=== PATIENT | male | born 1960 | race Caucasian/White ===

== ENCOUNTER 2023-03-06 07:26 | Emergency (ER) | payer MEDICAID, OTHER ==
[~2023-03-06] VITALS: Ht 172.7 cm; Wt 85.0 kg
[2023-03-06 08:37] LABS: Urine Bacteria NONE SEEN /hpf (None Seen); Urine Blood Negative /uL (Negative); Urine Clarity Clear (Clear); Urine Color Colorless (Yellow); Urine Protein, UAD Negative (Negative); Urine Specific Gravity 1.019 (1.001-1.035); Urine Urobilinogen Normal (Negative); Urine WBC 1 /hpf (0 - 3)
[2023-03-06 08:38] LABS: Basophils # (auto) 0 10 ^3/uL (0-0.2); Basophils % (auto) 0.4 % (0.0-2.0); Eosinophils # (auto) 0.1 10 ^3/uL (0-0.8); Eosinophils % (auto) 0.6 % (0.0-7.0); Hematocrit 43.1 % (41.0-53.0); Hemoglobin 14.2 g/dL (13.5-17.5); Lymphocytes # (auto) 1.1 10 ^3/uL (0.4-5.4); Lymphocytes % (auto) 10.5 % (10.0-50.0); Mean Corpuscular Hemoglobin 28.8 pg (28.0-32.0); Mean Corpuscular Volume 87.3 fL (80.0-100.0); Monocytes # (auto) 0.5 10 ^3/uL (0-1.3); Monocytes % (auto) 4.9 % (0.0-12.0); Neutrophils % (auto) 83.6 % (37.0-80.0); Red Blood Cells 4.94 10^6/uL (4.5-5.90); Red Cell Distribution Width 13.5 % (11.8-14.3); White Blood Cell 10.7 10^3/uL (4.4-10.8)
[2023-03-06 09:09] LABS: Alanine Aminotransferase 20 U/L (7-40); Albumin 4.6 g/dL (3.2-4.8); Alkaline Phosphatase 86 U/L (46-116); Anion Gap 7.5 (5-15); Aspartate Aminotransferase 22 U/L (13-40); BUN/Creatinine Ratio 13.9 (10.0-20.0); Blood Urea Nitrogen 14 mg/dL (9-23); Calcium 9.5 mg/dL (8.5-10.1); Carbon Dioxide 22.5 mmol/L (20-30); Chloride 108 mmol/L (98-107); Glucose 93 mg/dL (74-106); Sodium 138 mmol/L (136-145)
[2023-03-06 09:10] LABS: Bilirubin, Total 0.9 mg/dL (0.2-1.0); Total Protein 7.6 g/dL (5.7-8.2)
[2023-03-06] MEDS ORDERED: LIDOCAINE 2% JELLY 11ml (GLYDO) UR ONE (11:45)
[2023-03-06 12:23] VITALS: BP 142/87; PULSE 84; RESP 17; TEMP 98.8; O2SAT 97
== END 2023-03-06 12:24 | disposition home or self-care (01) ==
LOC: ER 07:26
DX: R33.9 Retention of urine, unspecified (principal); Z88.0 Allergy status to penicillin
CPT/HCPCS: 36415; 74176; 80053; 81001; 85025

== ENCOUNTER 2023-09-11 13:09 | Inpatient (IN) | payer MEDICAID ==
[~2023-09-11] VITALS: Ht 170.2 cm; Wt 82.2 kg
[~2023-09-11 13:09] MED LIST: CIPR-173 PO; TAMS-35 PO
[2023-09-11] MEDS: SODIUM CHLORIDE 0.9% 1,000 ML IVB ONE (14:02)
[2023-09-11] MEDS: ONDANSETRON HCL 4 MG/2 ML VIAL IV ONE ×2 (14:08→17:19)
[2023-09-11 14:25] LABS: Urine Bacteria NONE SEEN /hpf (None Seen); Urine Blood 3+ /uL (Negative); Urine Clarity Clear (Clear); Urine Color Yellow (Yellow); Urine Hyaline Cast FEW /lpf (0 - 2); Urine Mucus FEW (None Seen); Urine Protein, UAD 2+ (Negative); Urine Specific Gravity 1.021 (1.001-1.035); Urine Urobilinogen Normal (Negative); Urine WBC 25 /hpf (0 - 3)
[2023-09-11 14:26] LABS: Basophils # (auto) 0 10 ^3/uL (0-0.2); Basophils % (auto) 0.1 % (0.0-2.0); Eosinophils # (auto) 0.1 10 ^3/uL (0-0.8); Eosinophils % (auto) 0.8 % (0.0-7.0); Hematocrit 41.4 % (41.0-53.0); Hemoglobin 13.7 g/dL (13.5-17.5); Lymphocytes # (auto) 0.8 10 ^3/uL (0.4-5.4); Lymphocytes % (auto) 8.7 % (10.0-50.0); Mean Corpuscular Hemoglobin 28.8 pg (28.0-32.0); Mean Corpuscular Hgb Conc. 33.2 g/dL (32.0-36.0); Mean Corpuscular Volume 86.9 fL (80.0-100.0); Monocytes # (auto) 0.4 10 ^3/uL (0-1.3); Monocytes % (auto) 4.1 % (0.0-12.0); Neutrophils # (auto) 7.7 10 ^3/uL (1.6-8.6); Neutrophils % (auto) 86.3 % (37.0-80.0); Red Blood Cells 4.77 10^6/uL (4.5-5.90); Red Cell Distribution Width 13.4 % (11.8-14.3); White Blood Cell 8.9 10^3/uL (4.4-10.8)
[2023-09-11 14:41] LABS: Alanine Aminotransferase 16 U/L (7-40); Albumin 4.3 g/dL (3.2-4.8); Alkaline Phosphatase 83 U/L (46-116); Anion Gap 7 (5-15); Aspartate Aminotransferase 14 U/L (13-40); BUN/Creatinine Ratio 7.6 (10.0-20.0); Bilirubin, Total 0.3 mg/dL (0.2-1.0); Blood Urea Nitrogen 7 mg/dL (9-23); Calcium 9.2 mg/dL (8.7-10.4); Carbon Dioxide 27 mmol/L (20-30); Chloride 103 mmol/L (98-107); Glucose 128 mg/dL (74-106); Lipase 21 U/L (12-53); Magnesium 1.6 mg/dL (1.6-2.6); Potassium 4.7 mmol/L (3.5-5.1); Sodium 137 mmol/L (136-145)
[2023-09-11] MEDS: IOHEXOL 300 MG/ML 100ML BOTTLE IJ ONE (14:59)
[2023-09-11] MEDS: DONNATAL 5ml ORAL Elix (BELLADONNA ALK-PHENOBARB) PO ONE (15:31)
[2023-09-11] MEDS: LIDOCAINE VISCOUS 2% 15ML UD PO ONE (15:31)
[2023-09-11] MEDS: MAALOX PLUS or MAALOX 30 ML PO ONE (15:31)
[2023-09-11 17:08] VITALS: PULSE 55; RESP 13; O2SAT 98
[2023-09-11] MEDS: CEFEPIME 1GM/ 50ML 50 ML IV ONE (17:19)
[2023-09-11] MEDS: MORPHINE SULFATE 4 MG/ML SYR/VIAL IV ONE (17:19)
[2023-09-11] MEDS ORDERED: PANTOPRAZOLE 40 MG/10 ML VIAL INJ IV ONE (18:45)
[2023-09-11] MEDS ORDERED: metroNIDAZOLE 500MG/100ML 100 ML IV ONE (18:45)
[2023-09-11] MEDS ORDERED: levoFLOXacin 500MG 100 ML IV ONE (18:45)
[2023-09-11] MEDS ORDERED: DOCUSATE SOD 100 MG CAP PO PRN (18:45)
[2023-09-11 19:30] VITALS: PULSE 64; RESP 12; O2SAT 98
[2023-09-11] MEDS: CIPROFLOXACIN 400MG/200ML 200 ML IV ONE (20:25)
[2023-09-11] MEDS: SODIUM CHLORIDE 0.9% 1,000 ML IV SCH (20:25)
[2023-09-11] MEDS: PANTOPRAZOLE 40 MG/10 ML VIAL INJ IV ONE (20:25)
[2023-09-11] MEDS: hydrALAZINE HCL 20 MG/ML VL IV PRN (22:13)
[2023-09-11] MEDS: metroNIDAZOLE 500MG/100ML 100 ML IV SCH (23:58)
[2023-09-12] VITALS (7 sets, daily range): BP systolic 121–147; BP diastolic 75–84; PULSE 55–69; RESP 16–19; TEMP 97.5–98.3; O2SAT 97–99
[2023-09-12] MEDS: MORPHINE SULFATE INJ 2 MG/ml SYRG IV PRN (00:12)
[2023-09-12 05:34] LABS: Basophils # (auto) 0 10 ^3/uL (0-0.2); Basophils % (auto) 0.2 % (0.0-2.0); Eosinophils # (auto) 0 10 ^3/uL (0-0.8); Eosinophils % (auto) 0.6 % (0.0-7.0); Hemoglobin 14.2 g/dL (13.5-17.5); Lymphocytes # (auto) 1.2 10 ^3/uL (0.4-5.4); Mean Corpuscular Hemoglobin 28.7 pg (28.0-32.0); Mean Corpuscular Volume 86.9 fL (80.0-100.0); Monocytes # (auto) 0.5 10 ^3/uL (0-1.3); Monocytes % (auto) 6.7 % (0.0-12.0); Neutrophils # (auto) 6.3 10 ^3/uL (1.6-8.6); Neutrophils % (auto) 77.5 % (37.0-80.0); Red Blood Cells 4.95 10^6/uL (4.5-5.90); Red Cell Distribution Width 13.3 % (11.8-14.3); White Blood Cell 8.1 10^3/uL (4.4-10.8)
[2023-09-12 05:58] LABS: Alanine Aminotransferase 342 U/L (7-40); Albumin 4.3 g/dL (3.2-4.8); Alkaline Phosphatase 220 U/L (46-116); Anion Gap 5 (5-15); Aspartate Aminotransferase 524 U/L (13-40); BUN/Creatinine Ratio 5.6 (10.0-20.0); Blood Urea Nitrogen 5 mg/dL (9-23); Calcium 9.1 mg/dL (8.5-10.1); Carbon Dioxide 29 mmol/L (20-30); Chloride 104 mmol/L (98-107); Glucose 102 mg/dL (74-106); Potassium 4.3 mmol/L (3.5-5.1); Sodium 138 mmol/L (136-145)
[2023-09-12 05:59] LABS: Bilirubin, Total 2.1 mg/dL (0.2-1.0); Total Protein 7.3 g/dL (5.7-8.2)
[2023-09-12] MEDS ORDERED: levoFLOXacin 500MG 100 ML IV SCH (10:00)
[2023-09-12] MEDS ORDERED: PANTOPRAZOLE 40 MG/10 ML VIAL INJ IV SCH (10:00)
[2023-09-12] MEDS: PANTOPRAZOLE 40 MG/10 ML VIAL INJ IV SCH (11:24)
[2023-09-12] MEDS: CIPROFLOXACIN 400MG/200ML 200 ML IV SCH (11:24)
[2023-09-12] MEDS: TAMSULOSIN HYDROCHLORIDE 0.4 MG CAP PO SCH (17:03)
[2023-09-13 05:13] VITALS: BP 117/72; PULSE 65; RESP 18; TEMP 98.2; O2SAT 98
[2023-09-13 06:25] LABS: Alanine Aminotransferase 228 U/L (7-40); Albumin 3.4 g/dL (3.2-4.8); Alkaline Phosphatase 169 U/L (46-116); Anion Gap 3 (5-15); Aspartate Aminotransferase 180 U/L (13-40); BUN/Creatinine Ratio 5.2 (10.0-20.0); Blood Urea Nitrogen < 5 mg/dL (9-23); Calcium 8.8 mg/dL (8.7-10.4); Carbon Dioxide 28 mmol/L (20-30); Chloride 108 mmol/L (98-107); Glucose 94 mg/dL (74-106); Magnesium 1.8 mg/dL (1.6-2.6); Potassium 4.6 mmol/L (3.5-5.1); Sodium 139 mmol/L (136-145)
[2023-09-13 06:26] LABS: Bilirubin, Total 1.4 mg/dL (0.2-1.0); Total Protein 5.8 g/dL (5.7-8.2)
[2023-09-13 06:31] LABS: Basophils # (auto) 0 10 ^3/uL (0-0.2); Basophils % (auto) 0.4 % (0.0-2.0); Eosinophils # (auto) 0.2 10 ^3/uL (0-0.8); Eosinophils % (auto) 3.6 % (0.0-7.0); Hematocrit 36.4 % (41.0-53.0); Hemoglobin 12.1 g/dL (13.5-17.5); Lymphocytes # (auto) 1.3 10 ^3/uL (0.4-5.4); Lymphocytes % (auto) 21.4 % (10.0-50.0); Mean Corpuscular Hemoglobin 28.9 pg (28.0-32.0); Mean Corpuscular Hgb Conc. 33.4 g/dL (32.0-36.0); Mean Corpuscular Volume 86.5 fL (80.0-100.0); Monocytes # (auto) 0.5 10 ^3/uL (0-1.3); Monocytes % (auto) 8.3 % (0.0-12.0); Neutrophils # (auto) 3.9 10 ^3/uL (1.6-8.6); Neutrophils % (auto) 66.3 % (37.0-80.0); Nucleated Red Blood Cells % 0.1 %; Red Cell Distribution Width 13.6 % (11.8-14.3); White Blood Cell 5.9 10^3/uL (4.4-10.8)
[2023-09-13 07:31] VITALS: BP 114/70; PULSE 57; RESP 16; TEMP 97.6; O2SAT 98
[2023-09-13] MEDS ORDERED: HYDR-4902 PO (07:39)
[2023-09-13 07:55] VITALS: PULSE 57; RESP 16; O2SAT 98
[2023-09-13 11:47] VITALS: BP 134/85; PULSE 58; RESP 16; TEMP 98.2; O2SAT 96
[2023-09-13 16:22] VITALS: BP 122/86; PULSE 59; RESP 17; TEMP 98.3; O2SAT 99
[2023-09-13 21:56] VITALS: BP 125/74; PULSE 78; RESP 16; TEMP 98.1; O2SAT 98
[2023-09-14 05:00] VITALS: BP 115/77; PULSE 55; RESP 17; TEMP 98.1; O2SAT 95
[2023-09-14 05:36] LABS: Alanine Aminotransferase 170 U/L (7-40); Albumin 3.4 g/dL (3.2-4.8); Alkaline Phosphatase 162 U/L (46-116); Anion Gap 5 (5-15); Aspartate Aminotransferase 83 U/L (13-40); Bilirubin, Total 0.7 mg/dL (0.2-1.0); Calcium 8.8 mg/dL (8.7-10.4); Carbon Dioxide 27 mmol/L (20-30); Chloride 109 mmol/L (98-107); Glucose 77 mg/dL (74-106); Magnesium 1.9 mg/dL (1.6-2.6); Potassium 4.4 mmol/L (3.5-5.1); Sodium 141 mmol/L (136-145)
[2023-09-14 05:50] LABS: BUN/Creatinine Ratio 5.6 (10.0-20.0); Blood Urea Nitrogen < 5 mg/dL (9-23)
[2023-09-14 08:48] LABS: Hepatitis B Surface Antigen Negative (Negative)
[2023-09-14 09:10] LABS: Hepatitis C Antibody Negative (Negative)
[2023-09-14 12:30] VITALS: BP 153/91; PULSE 51; RESP 18; TEMP 98.1; O2SAT 99
[2023-09-14 17:00] VITALS: BP 149/79; PULSE 51; RESP 20; TEMP 97.6; O2SAT 99
[2023-09-14 22:00] VITALS: BP 133/83; PULSE 62; RESP 18; TEMP 98; O2SAT 96
[2023-09-15 05:00] VITALS: BP 115/72; PULSE 60; RESP 18; TEMP 97.2; O2SAT 96
[2023-09-15 08:30] VITALS: BP 132/83; PULSE 57; RESP 18; TEMP 97.8; O2SAT 96
[2023-09-15 12:29] VITALS: BP 124/85; PULSE 74; RESP 20; TEMP 98.1; O2SAT 97
[2023-09-15 16:30] VITALS: BP 149/81; PULSE 60; RESP 17; TEMP 98.1; O2SAT 99
[2023-09-15 22:00] VITALS: BP 114/69; PULSE 60; RESP 17; TEMP 98; O2SAT 93
[2023-09-16 05:00] VITALS: BP 131/76; PULSE 59; RESP 17; TEMP 98.3; O2SAT 96
[2023-09-16 06:47] LABS: Basophils # (auto) 0 10 ^3/uL (0-0.2); Basophils % (auto) 0.5 % (0.0-2.0); Eosinophils # (auto) 0.3 10 ^3/uL (0-0.8); Eosinophils % (auto) 4.6 % (0.0-7.0); Hematocrit 37.4 % (41.0-53.0); Hemoglobin 12.6 g/dL (13.5-17.5); Lymphocytes # (auto) 1.4 10 ^3/uL (0.4-5.4); Lymphocytes % (auto) 20.4 % (10.0-50.0); Mean Corpuscular Hemoglobin 28.9 pg (28.0-32.0); Mean Corpuscular Hgb Conc. 33.6 g/dL (32.0-36.0); Mean Corpuscular Volume 85.9 fL (80.0-100.0); Monocytes # (auto) 0.5 10 ^3/uL (0-1.3); Monocytes % (auto) 7.2 % (0.0-12.0); Neutrophils # (auto) 4.7 10 ^3/uL (1.6-8.6); Neutrophils % (auto) 67.3 % (37.0-80.0); Red Blood Cells 4.35 10^6/uL (4.5-5.90); Red Cell Distribution Width 13.4 % (11.8-14.3)
[2023-09-16 07:03] LABS: Alanine Aminotransferase 108 U/L (7-40); Albumin 3.6 g/dL (3.2-4.8); Alkaline Phosphatase 199 U/L (46-116); Anion Gap 4 (5-15); Aspartate Aminotransferase 40 U/L (13-40); BUN/Creatinine Ratio 9.5 (10.0-20.0); Blood Urea Nitrogen 9 mg/dL (9-23); Calcium 8.8 mg/dL (8.5-10.1); Carbon Dioxide 25 mmol/L (20-30); Chloride 109 mmol/L (98-107); Cholesterol 126 mg/dL (< 200); Glucose 101 mg/dL (74-106); HDL Cholesterol 29 mg/dL (40-59); LDL Cholesterol 84 mg/dL (< 100); Potassium 4.1 mmol/L (3.5-5.1); Sodium 138 mmol/L (136-145); Triglycerides 91 mg/dL (< 150)
[2023-09-16 07:04] LABS: Bilirubin, Total 0.5 mg/dL (0.2-1.0)
[2023-09-16 07:47] LABS: Lipase 38 U/L (12-53)
[2023-09-16 07:48] LABS: Magnesium 1.8 mg/dL (1.6-2.6)
[2023-09-16 09:00] VITALS: BP 117/76; PULSE 54; RESP 18; TEMP 98.1; O2SAT 95
[2023-09-16] MEDS ORDERED: SUCCINYLCHOLINE CHLORIDE 20 MG/ML 10ML VIAL IV ONE (11:04)
[2023-09-16] MEDS ORDERED: fentaNYL CITRATE 100 MCG/2 ML VL ONE (11:09)
[2023-09-16] MEDS ORDERED: PROPOFOL 10 MG/ML 20 ML IV ONE (11:09)
[2023-09-16 11:43] LABS: INR 1.1 (0.9-1.15); Partial Thromboplastin Time 29.8 SEC (24.5-34.5); Prothrombin Time 11.5 sec (9.3-11.8)
[2023-09-16] MEDS ORDERED: ROCURONIUM 10MG/ML 10ML VIAL IV ONE (12:06)
[2023-09-16] MEDS ORDERED: DexAMETHasone SOD PHOS 10MG/1ML VIAL INJ ONE (12:07)
[2023-09-16] MEDS ORDERED: ONDANSETRON HCL 4 MG/2 ML VIAL ONE (12:07)
[2023-09-16] MEDS ORDERED: ePHEDrine SULFATE 50 MG/ML AMP ONE (12:09)
[2023-09-16] MEDS ORDERED: PHENYLEPHRINE HCL 10 MG/ML VL ONE (12:14)
[2023-09-16] MEDS ORDERED: MEPERIDINE HCL (50 MG/ML) 1 ML VIAL ONE (12:23)
[2023-09-16] MEDS ORDERED: SUGAMMADEX 200mg/2ml Vial (100MG/ML) IV ONE (12:50)
[2023-09-16] MEDS: LIDOCAINE W/ EPINEPHRINE 1% 20ML VIAL ONE (12:55)
[2023-09-16] MEDS: BUPIVACAINE 0.5% P/F INJ 10 ML VIAL ONE (12:55)
[2023-09-16] MEDS ORDERED: MEPERIDINE HCL (25 MG/ML) 1ML VIAL ONE (12:57)
[2023-09-16 13:06] VITALS: PULSE 82; RESP 14; O2SAT 96
[2023-09-16] MEDS ORDERED: ONDANSETRON HCL 4 MG/2 ML VIAL IV PRN (13:15)
[2023-09-16] MEDS ORDERED: HYDROmorphone HCL 2 MG/ML VL/or syr IV PRN (13:15)
[2023-09-16] MEDS ORDERED: MEPERIDINE HCL (25 MG/ML) 1ML VIAL IV PRN (13:15)
[2023-09-16] MEDS: ONDANSETRON HCL 4 MG/2 ML VIAL IV PRN (15:09)
[2023-09-16 17:00] VITALS: BP 116/67; PULSE 75; RESP 17; TEMP 97; O2SAT 92
[2023-09-16 17:00] LABS: Basophils # (auto) 0 10 ^3/uL (0-0.2); Basophils % (auto) 0.3 % (0.0-2.0); Eosinophils # (auto) 0 10 ^3/uL (0-0.8); Eosinophils % (auto) 0.1 % (0.0-7.0); Hemoglobin 13.1 g/dL (13.5-17.5); Lymphocytes # (auto) 0.4 10 ^3/uL (0.4-5.4); Lymphocytes % (auto) 3.6 % (10.0-50.0); Mean Corpuscular Hemoglobin 28.3 pg (28.0-32.0); Mean Corpuscular Hgb Conc. 32.8 g/dL (32.0-36.0); Mean Corpuscular Volume 86.1 fL (80.0-100.0); Monocytes # (auto) 0.2 10 ^3/uL (0-1.3); Monocytes % (auto) 1.6 % (0.0-12.0); Neutrophils # (auto) 10.9 10 ^3/uL (1.6-8.6); Neutrophils % (auto) 94.4 % (37.0-80.0); Red Blood Cells 4.64 10^6/uL (4.5-5.90); Red Cell Distribution Width 13.5 % (11.8-14.3); White Blood Cell 11.5 10^3/uL (4.4-10.8)
[2023-09-16 22:00] VITALS: BP 113/69; PULSE 76; RESP 18; TEMP 97.8; O2SAT 93
[2023-09-17 05:00] VITALS: BP 95/53; PULSE 65; RESP 15; TEMP 97.3; O2SAT 93
[2023-09-17 05:19] LABS: Basophils # (auto) 0 10 ^3/uL (0-0.2); Basophils % (auto) 0.3 % (0.0-2.0); Eosinophils # (auto) 0 10 ^3/uL (0-0.8); Hematocrit 38.2 % (41.0-53.0); Hemoglobin 12.4 g/dL (13.5-17.5); Lymphocytes # (auto) 0.6 10 ^3/uL (0.4-5.4); Lymphocytes % (auto) 4.3 % (10.0-50.0); Mean Corpuscular Hemoglobin 28.2 pg (28.0-32.0); Mean Corpuscular Hgb Conc. 32.5 g/dL (32.0-36.0); Mean Corpuscular Volume 86.8 fL (80.0-100.0); Monocytes # (auto) 0.4 10 ^3/uL (0-1.3); Monocytes % (auto) 2.6 % (0.0-12.0); Neutrophils # (auto) 13.6 10 ^3/uL (1.6-8.6); Neutrophils % (auto) 92.8 % (37.0-80.0); Red Cell Distribution Width 13.6 % (11.8-14.3); White Blood Cell 14.7 10^3/uL (4.4-10.8)
[2023-09-17 05:32] LABS: Alanine Aminotransferase 100 U/L (7-40); Albumin 3.7 g/dL (3.2-4.8); Alkaline Phosphatase 168 U/L (46-116); Anion Gap 6 (5-15); Aspartate Aminotransferase 51 U/L (13-40); BUN/Creatinine Ratio 10.4 (10.0-20.0); Bilirubin, Total 0.6 mg/dL (0.2-1.0); Blood Urea Nitrogen 10 mg/dL (9-23); Calcium 8.9 mg/dL (8.7-10.4); Carbon Dioxide 25 mmol/L (20-30); Chloride 105 mmol/L (98-107); Glucose 137 mg/dL (74-106); INR 1.12 (0.9-1.15); Lipase 24 U/L (12-53); Magnesium 1.9 mg/dL (1.6-2.6); Potassium 4.4 mmol/L (3.5-5.1); Prothrombin Time 11.7 sec (9.3-11.8); Sodium 136 mmol/L (136-145); Total Protein 6.4 g/dL (5.7-8.2)
[2023-09-17 06:03] VITALS: BP 109/74; PULSE 75
[2023-09-17 08:00] VITALS: BP 119/62; PULSE 75; RESP 16; TEMP 98; O2SAT 92
[2023-09-17] MEDS ORDERED: METR-344 PO (11:38)
[2023-09-17] MEDS ORDERED: CIPR-173 PO (11:38)
[2023-09-17 12:00] VITALS: BP 124/78; PULSE 66; RESP 16; TEMP 97.7; O2SAT 97
[2023-09-17 12:01] VITALS: BP 154/85; TEMP 36.7
== END 2023-09-17 14:33 | disposition home or self-care (01) | DRG 263 ==
LOC: ER 13:09 → OVERFLOW 18:42 → WEST WING 22:09
PROVIDERS: ADMIT Nurse Practitioner Family; ATTEND Internal Medicine Geriatric Medicine
PROC: 0FT44ZZ Resection of Gallbladder, Percutaneous Endoscopic Approach (ICD-10-PCS; principal; 2023-09-16 11:58)
DX: K80.12 Calculus of gallbladder with acute and chronic cholecystitis without obstruction (principal); K76.89 Other specified diseases of liver; D49.4 Neoplasm of unspecified behavior of bladder; K44.9 Diaphragmatic hernia without obstruction or gangrene; N30.00 Acute cystitis without hematuria; K82.8 Other specified diseases of gallbladder; Z85.46 Personal history of malignant neoplasm of prostate; Z88.0 Allergy status to penicillin; Z80.52 Family history of malignant neoplasm of bladder; Z80.1 Family history of malignant neoplasm of trachea, bronchus and lung; Z85.51 Personal history of malignant neoplasm of bladder; N40.1 Benign prostatic hyperplasia with lower urinary tract symptoms
CPT/HCPCS: 36415; 71045; 74177; 74181; 76705; 78226; 80053; 80061; 81001; 83605; 83690; 83735; 84484; 85025; 85610; 85730; 86803; 86850; 86900; 86901; 87040; 87086; 87340; 93005; C9113; G0378; J0330; J1100; J2405; J2704; J3490

== ENCOUNTER 2023-09-28 10:56 | Emergency (ER) | payer MEDICAID ==
[~2023-09-28] VITALS: Ht 172.7 cm; Wt 77.0 kg
[~2023-09-28 10:56] MED LIST changes: +HYDR-4902 PO; +METR-344 PO
[2023-09-28 10:58] VITALS: BP 117/80; PULSE 76; RESP 16; TEMP 97.8; O2SAT 98
== END 2023-09-28 13:05 | disposition home or self-care (01) ==
LOC: ER 10:56
DX: T81.89XD Other complications of procedures, not elsewhere classified, subsequent encounter (principal); Z48.01 Encounter for change or removal of surgical wound dressing; Z85.9 Personal history of malignant neoplasm, unspecified; Z88.0 Allergy status to penicillin; Z79.899 Other long term (current) drug therapy; Y92.89 Other specified places as the place of occurrence of the external cause

== ENCOUNTER 2024-08-05 11:38 | Emergency (ER) | payer MEDICAID ==
[~2024-08-05] VITALS: Ht 170.2 cm; Wt 78.7 kg
[2024-08-05] MEDS ORDERED: HYDR25SU21 PR (12:00)
--- NOTE | 2024-08-05 12:05 | ED.PDOC ---
History of Present Illness HPI Comments 64M presents to the ER w/ prior Hx of a colonoscopy, Prostate Cancer and Enlarged Prostate which all may be associated to the c/c of ABD pain + Rectal pain. Pt reports on having a colonoscopy done 3 months ago w/ only hemorrhoids. Pt currently has an enlarged prostate and is stating "my ass is on fire". SHx of Cholecystectomy and left shoulder Sx. Social Hx of Occasional alcohol use, but denies tobacco and substance use. Denies chills, fever, N/V/D, SOB, CP or other associated symptom's, modifiers, or recent injuries or sick contact at this time. Time Seen by MD: 11:50 Primary Care Provider: ADWOA Reviewed Notes: Nurses Notes, Medications, Allergies Allergies: Coded Allergies: Penicillins (Verified Allergy, Unknown, 03/06/23) Home Meds Active Scripts Hydrocortisone Acetate (Anusol-Hc) 25 Mg Sup, 1 SUPP DE BID, #14 SUPP Prov:PARVEEN GOLDMAN MD 08/05/24 Metronidazole (Flagyl) 500 Mg Tab, 1 TAB PO TID, #15 TAB Prov:GLENN ARNDT MD 09/17/23 Ciprofloxacin Hcl (Cipro) 500 Mg Tab, 1 TAB PO BID, #10 TAB Prov:GLENN ARNDT MD 09/17/23 Tamsulosin Hcl (Flomax) 0.4 Mg Cap, 1 CAP PO DAILY, #30 CAP Prov:KJ HODGES 06/19/23 Reported Medications Hydrocodone-Acetaminophen (Hydrocodone Bitartrate/AC 5-325 mg) 1 Tab Tab, 1 TAB PO Q4HP, TAB 09/13/23 Information Source: Patient Mode of Arrival: Ambulatory Severity: Moderate Timing: Months Duration: Since onset Prehospital treatment: None Past Medical History PAST MEDICAL HISTORY: Cancer (Prostate cancer) Surgical History: Cholecystectomy Surgical History (Other): Left Shoulder Sx Family History Family History: Reviewed,noncontributory to illness Social History Smoker: Non-Smoker Alcohol: Occasionally Drugs: Denies Drug Use Lives In: Home Constitutional: denies: chills, diaphoresis, fatigue, fever, malaise, sweats, weakness, others EENTM: denies: blurred vision, double vision, ear bleeding, ear discharge, ear drainage, ear pain, ear ringing, eye pain, eye redness, hearing loss, mouth pain, mouth swelling, nasal discharge, nose bleeding, nose congestion, nose pain, photophobia, tearing, throat pain, throat swelling, voice changes, others Respiratory: denies: cough, hemoptysis, orthopnea, SOB at rest, shortness of breath, SOB with excertion, stridor, wheezing, others Cardiovascular: denies: chest pain, dizzy spells, diaphoresis, Dyspnea on exertion, edema, irregular heart beat, left arm pain, lightheadedness, palpitations, PND, syncope, others Gastrointestinal: reports: rectal pain; denies: abdomen distended, abdominal pain, blood streaked bowels, constipated, diarrhea, dysphagia, difficulty swallowing, hematemesis, melena, nausea, poor appetite, poor fluid intake, rectal bleeding, vomiting, others Genitourinary: denies: burning, dysuria, flank pain, frequency, hematuria, incontinence, penile discharge, penile sore, pain, testicle pain, testicle swelling, urgency, others Neurological: denies: dizziness, fainting, headache, left sided numbness, left sided weakness, numbness, paresthesia, pre-existing deficit, right sided numbness, right sided weakness, seizure, speech problems, tingling, tremors, weakness, others Musculoskeletal: denies: back pain, gout, joint pain, joint swelling, muscle pain, muscle stiffness, neck pain, others Integumetry: denies: bruises, change in color, change in hair/nails, dryness, laceration, lesions, lumps, rash, wounds, others Allergic/Immunocompromised: denies: Difficulty Healing, Frequent Infections, Hives, Itching, others Hematologic/Lymphatic: denies: anemia, blood clots, easy bleeding, easy bruising, swollen glands, others Endocrine: denies: excessive hunger, excessive sweating, excessive thirst, excessive urination, flushing, intolerance to cold, intolerance to heat, unex plained weight gain, unexplained weight loss, others Psychiatric: denies: anxiety, bipolar disorder, depression, hopeless, panic disorder, schizophrenia, sleepless, suicidal, others All Other Systems: Reviewed and Negative Physical Exam General Appearance: No Apparent Distress HEENT: Normal ENT Inspection, Pharynx Normal, TMs Normal Neck: Full Range of Motion, Non-Tender, Normal, Normal Inspection Respiratory: Chest Non-Tender, Lungs Clear, No Accessory Muscle Use, No Respiratory Distress, Normal Breath Sounds Cardiovascular: No Edema, No JVD, No Murmur, No Gallop, Normal Peripheral Pulses, Regular Rate/Rhythm Breast Exam: Deferred Gastrointestinal: No Organomegaly, Non Tender, No Pulsatile Mass, Normal Bowel Sounds, Soft Genitalia: Deferred Pelvic: Deferred Rectal: Heme negative stool, Hemorrhoids Extremities: No calf tenderness, Normal capillary refill, Normal inspection, Normal range of motion, Non-tender, No pedal edema Musculoskeletal : Apperance: Normal Neurologic: Alert, broadcast chief engineer II-XII nml as Tested, No Motor Deficits, Normal Affect, Normal Mood, No Sensory Deficits Cerebellar Function: Normal Reflexes: Normal Skin: Dry, Normal Color, Warm Lymphatic: No Adenopathy Was a procedure done? Was a procedure done?: No Differential Dx Considerations may include: Internal hemorrhoids, rectal bleeding X-Ray, Labs, Meds, VS Vital Signs Date Time Temp Pulse Resp B/P (MAP) Pulse Ox O2 Delivery O2 Flow Rate FiO2 08/05/24 12:08 98.3 75 18 171/91 (117) 98 The patient was being discharged on Anusol The patient will return to the emergency department's the condition worsens. Time of 1ST Reevaluation: 12:20 Reevaluation 1ST: Unchanged Patient Education/Counseling: Diagnosis, Treatment, Prognosis, Need For Follow Up Family Education/Counseling: No Family Present Departure 1 Departure Time of Disposition: 12:26 Impression: Primary Impression: Internal hemorrhoids Disposition: 01 HOME / SELF CARE / HOMELESS Condition: Fair e-Prescriptions Hydrocortisone Acetate (Anusol-Hc) 25 Mg Sup 1 SUPP DE BID, #14 SUPP Prov: PARVEEN GOLDMAN MD 08/05/24 Discharged With: Self Critical Care Note Critical Care Time?: No Stability Stability form required: No Heart Score Heart Score: Heart Score Response (Comments) Value History N/A 0 EKG N/A 0 Age N/A 0 Risk Factors N/A 0 Troponin N/A 0 Total 0 I personally scribed for PARVEEN GOLDMAN MD ([email or web address]) on 08/05/24 at 12:05. Electronically submitted by Fernando Sales ([email or web address]). PARVEEN GOLDMAN MD Aug 05, 2024 12:05
[2024-08-05 12:36] VITALS: BP 156/89; PULSE 67; RESP 16; TEMP 97.5; O2SAT 99
== END 2024-08-05 12:40 | disposition home or self-care (01) ==
LOC: ER 11:38
DX: K64.8 Other hemorrhoids (principal); Z90.49 Acquired absence of other specified parts of digestive tract; Z85.46 Personal history of malignant neoplasm of prostate; Z87.19 Personal history of other diseases of the digestive system; Z88.0 Allergy status to penicillin; Z79.899 Other long term (current) drug therapy

== ENCOUNTER 2024-08-16 10:43 | Inpatient (IN) | payer MEDICAID ==
[~2024-08-16] VITALS: Ht 172.7 cm; Wt 73.9 kg
[~2024-08-16 10:43] MED LIST changes: +HYDR25SU21 PR
--- NOTE | 2024-08-16 10:56 | ED.PDOC ---
History of Present Illness HPI Comments This is a 64-year-old male who comes in with chief complaint of an elevated potassium. The patient was recently diagnosed with hypertension as of yesterday but has not been started on any medications. The patient had some blood work done yesterday and was called by his doctor today and was told to come to the emergency department's because his potassium was very elevated. 911 was called and the patient was transported to our facility. The patient denies any chest pain or shortness for breath. There has been no nausea, vomiting or diarrhea. Time Seen by MD: 10:51 Primary Care Provider: ADWOA Reviewed Notes: Nurses Notes, Medications, Allergies (Allergies to penicillin) Allergies: Coded Allergies: Penicillins (Verified Allergy, Unknown, 03/06/23) Home Meds Active Scripts Hydrocortisone Acetate (Anusol-Hc) 25 Mg Sup, 1 SUPP [place] BID, #14 SUPP Prov:PARVEEN GOLDMAN MD 08/05/24 Metronidazole (Flagyl) 500 Mg Tab, 1 TAB PO TID, #15 TAB Prov:GLENN ARNDT MD 09/17/23 Ciprofloxacin Hcl (Cipro) 500 Mg Tab, 1 TAB PO BID, #10 TAB Prov:GLENN ARNDT MD 09/17/23 Tamsulosin Hcl (Flomax) 0.4 Mg Cap, 1 CAP PO DAILY, #30 CAP Prov:KJ HODGES 06/19/23 Reported Medications Hydrocodone-Acetaminophen (Hydrocodone Bitartrate/AC 5-325 mg) 1 Tab Tab, 1 TAB PO Q4HP, TAB 09/13/23 Information Source: Patient Mode of Arrival: EMS Severity: Mild Timing: Other (Unknown period of time) Duration: Since onset Prehospital treatment: None Associated signs and symptoms No weakness, nausea, chest pain or vomiting Past Medical History PAST MEDICAL HISTORY: Cancer (Bladder cancer), HTN Surgical History: Cholecystectomy Surgical History (Other): Bladder surgery Family History Family History: Family hx of Cancer Social History Smoker: Non-Smoker Alcohol: Occasionally Drugs: Denies Drug Use Lives In: Home Constitutional: denies: chills, diaphoresis, fatigue, fever, malaise, sweats, weakness, others EENTM: denies: blurred vision, double vision, ear bleeding, ear discharge, ear drainage, ear pain, ear ringing, eye pain, eye redness, hearing loss, mouth pain, mouth swelling, nasal discharge, nose bleeding, nose congestion, nose pain, photophobia, tearing, throat pain, throat swelling, voice changes, others Respiratory: denies: cough, hemoptysis, orthopnea, SOB at rest, shortness of breath, SOB with excertion, stridor, wheezing, others Cardiovascular: denies: chest pain, dizzy spells, diaphoresis, Dyspnea on exertion, edema, irregular heart beat, left arm pain, lightheadedness, palpitations, PND, syncope, others Gastrointestinal: denies: abdomen distended, abdominal pain, blood streaked bowels, constipated, diarrhea, dysphagia, difficulty swallowing, hematemesis, melena, nausea, poor appetite, poor fluid intake, rectal bleeding, rectal pain, vomiting, others Genitourinary: denies: burning, dysuria, flank pain, frequency, hematuria, incontinence, penile discharge, penile sore, pain, testicle pain, testicle swelling, urgency, others Neurological: denies: dizziness, fainting, headache, left sided numbness, left sided weakness, numbness, paresthesia, pre-existing deficit, right sided numbness, right sided weakness, seizure, speech problems, tingling, tremors, wea kness, others Musculoskeletal: denies: back pain, gout, joint pain, joint swelling, muscle pain, muscle stiffness, neck pain, others Integumetry: denies: bruises, change in color, change in hair/nails, dryness, l aceration, lesions, lumps, rash, wounds, others Allergic/Immunocompromised: denies: Difficulty Healing, Frequent Infections, Hives, Itching, others Hematologic/Lymphatic: denies: anemia, blood clots, easy bleeding, easy bruising, swollen glands, others Endocrine: denies: excessive hunger, excessive sweating, excessive thirst, excessive urination, flushing, intolerance to cold, intolerance to heat, unexplained weight gain, unexplained weight loss, others Psychiatric: denies: anxiety, bipolar disorder, depression, hopeless, panic disorder, schizophrenia, sleepless, suicidal, others Physical Exam General Appearance: Moderate Distress HEENT: Normal ENT Inspection, Pharynx Normal, TMs Normal Neck: Full Range of Motion, Non-Tender, Normal, Normal Inspection Respiratory: Chest Non-Tender, Lungs Clear, No Accessory Muscle Use, No Re spiratory Distress, Normal Breath Sounds Cardiovascular: No Edema, No JVD, No Murmur, No Gallop, Normal Peripheral Pulses, Regular Rate/Rhythm Breast Exam: Deferred Gastrointestinal: LLQ, No Organomegaly, No Pulsatile Mass, Normal Bowel Sounds, RLQ, Soft, Tenderness Genitalia: Deferred Pelvic: Deferred Rectal: Deferred Extremities: No calf tenderness, Normal capillary refill, Normal inspection, Normal range of motion, Non-tender, No pedal edema Musculoskeletal : Apperance: Normal Neurologic: Alert, remediation technician II-XII nml as Tested, No Motor Deficits, Normal Affect, Normal Mood, No Sensory Deficits Cerebellar Function: Normal Reflexes: Normal Skin: Dry, Normal Color, Warm Lymphatic: No Adenopathy Was a procedure done? Was a procedure done?: No EKG EKG : Pulse Rate (adult): 71 [place]: Normal Cardiac Rhythm: NSR Block: None ST: Nonsp Differential Dx Considerations may include: Hyperkalemia, hypokalemia, electrolyte imbalance X-Ray, Labs, Meds, VS Vital Signs Date Time Temp Pulse Resp B/P (MAP) Pulse Ox O2 Delivery O2 Flow Rate FiO2 08/16/24 10:56 71 08/16/24 10:50 98.0 68 18 160/93 (115) 98 08/16/24 10:47 71 Lab Test 08/16/24 10:50 Range/Units White Blood Count 9.0 4.4-10.8 10^3/uL Red Blood Count 3.97 L 4.5-5.90 10^6/uL Hemoglobin 11.2 L 13.5-17.5 g/dL Hematocrit 33.6 L 41.0-53.0 % Mean Corpuscular Volume 84.7 80.0-100.0 fL Mean Corpuscular Hemoglobin 28.3 28.0-32.0 pg Mean Corpuscular Hemoglobin Concent 33.4 32.0-36.0 g/dL Red Cell Distribution Width 13.5 11.8-14.3 % Platelet Count 271 140-450 10^3/uL Mean Platelet Volume 7.3 6.9-10.8 fL Neutrophils (%) (Auto) 81.1 H 37.0-80.0 % Lymphocytes (%) (Auto) 8.7 L 10.0-50.0 % Monocytes (%) (Auto) 6.5 0.0-12.0 % Eosinophils (%) (Auto) 2.7 0.0-7.0 % Basophils (%) (Auto) 1.0 0.0-2.0 % Neutrophils # (Auto) 7.3 1.6-8.6 10 ^3/uL Lymphocytes # (Auto) 0.8 0.4-5.4 10 ^3/uL Monocytes # (Auto) 0.6 0-1.3 10 ^3/uL Eosinophils # (Auto) 0.2 0-0.8 10 ^3/uL Basophils # (Auto) 0.1 0-0.2 10 ^3/uL Nucleated Red Blood Cells 0.0 % Sodium Level 139 136-145 mmol/L Potassium Level 6.1 *H 3.5-5.1 mmol/L Chloride Level 109 H 98-107 mmol/L Carbon Dioxide Level 18 L 20-31 mmol/L Anion Gap 12 5-15 Blood Urea Nitrogen 97 *H 9-23 mg/dL Creatinine 12.99 *H 0.700-1.30 mg/dL Glomerular Filtration Rate Calc 4 >90 mL/min BUN/Creatinine Ratio 7.5 L 10.0-20.0 Serum Glucose 116 H 74-106 mg/dL Calcium Level 9.4 8.7-10.4 mg/dL The CBC is within normal limits The chemistry panel shows a potassium 6.1 as well as a BUN of 97 and a creatinine of 12.99 Our concern is that this could be obstructive uropathy. A De La Cruz catheter is being placed We did get a Nephrology consult. At this time the patient was aware and understands the treatment. An IV Hep-Lock has been established For the potassium, the patient was given calcium, sodium bicarbonate, insulin and dextrose At this time, the patient was being admitted Time of 1ST Reevaluation: 10:56 Reevaluation 1ST: Unchanged Patient Education/Counseling: Diagnosis, Treatment, Prognosis Family Education/Counseling: No Family Present Departure 1 Departure Time of Disposition: 13:06 Impression: Primary Impression: Hyperkalemia Additional Impressions: Generalized weakness Acute renal failure Qualified Codes: N17.1 - Acute kidney failure with acute cortical necrosis Disposition: ADMITTED INPATIENT Admit to: Tele Condition: Fair Critical Care Note Critical Care Time?: No Stability Stability form required: Yes Unstable for transfer: Telemetry monitoring (Telemetry monitoring required), ED Physician Assesment (Clinical assesment) Heart Score Heart Score: Heart Score Response (Comments) Value History N/A 0 EKG N/A 0 Age N/A 0 Risk Factors N/A 0 Troponin N/A 0 Total 0 PARVEEN GOLDMAN MD Aug 16, 2024 10:56
[2024-08-16 11:17] LABS: Basophils # (auto) 0.1 10 ^3/uL (0-0.2); Eosinophils # (auto) 0.2 10 ^3/uL (0-0.8); Eosinophils % (auto) 2.7 % (0.0-7.0); Hematocrit 33.6 % (41.0-53.0); Hemoglobin 11.2 g/dL (13.5-17.5); Lymphocytes # (auto) 0.8 10 ^3/uL (0.4-5.4); Lymphocytes % (auto) 8.7 % (10.0-50.0); Mean Corpuscular Hemoglobin 28.3 pg (28.0-32.0); Mean Corpuscular Hgb Conc. 33.4 g/dL (32.0-36.0); Mean Corpuscular Volume 84.7 fL (80.0-100.0); Monocytes # (auto) 0.6 10 ^3/uL (0-1.3); Monocytes % (auto) 6.5 % (0.0-12.0); Neutrophils # (auto) 7.3 10 ^3/uL (1.6-8.6); Neutrophils % (auto) 81.1 % (37.0-80.0); Platelet Count (auto) 271 10^3/uL (140-450); Red Blood Cells 3.97 10^6/uL (4.5-5.90); Red Cell Distribution Width 13.5 % (11.8-14.3)
[2024-08-16 11:38] LABS: Sodium 139 mmol/L (136-145)
[2024-08-16 11:40] LABS: Calcium 9.4 mg/dL (8.7-10.4)
[2024-08-16 11:44] LABS: BUN/Creatinine Ratio 7.5 (10.0-20.0)
[2024-08-16 11:55] LABS: Carbon Dioxide 18 mmol/L (20-31); Glucose 116 mg/dL (74-106)
[2024-08-16 11:57] LABS: Blood Urea Nitrogen 97 mg/dL (9-23); Potassium 6.1 mmol/L (3.5-5.1)
[2024-08-16 12:05] LABS: Anion Gap 12 (5-15)
[2024-08-16 12:11] LABS: Chloride 109 mmol/L (98-107)
[2024-08-16] MEDS: DEXTROSE (50%) 50ML SYRG IV ONE (13:00)
[2024-08-16] MEDS: InsuLIN REG 1unit/0.01ml Soln (100units/ml) IV ONE ×2 (13:00→14:32)
[2024-08-16] MEDS: ALBUTEROL SULF 2.5 MG/0.5ML(0.5%) NEB SOLN NEB ONE (13:17)
[2024-08-16 14:00] VITALS: PULSE 85; RESP 14; O2SAT 95
[2024-08-16] MEDS: CALCIUM GLUC 1,000mg/50ml-NS 50 ML IV ONE ×2 (14:00→15:35)
[2024-08-16] MEDS: SODIUM BICARB 8.4% 50Meq/50ml SYR Vial IV ONE ×2 (14:00→15:35)
[2024-08-16] MEDS ORDERED: MORPHINE SULFATE INJ 2 MG/ml SYRG IV PRN (14:15)
[2024-08-16] MEDS ORDERED: ACETAMINOPHEN 325 MG TAB PO PRN (14:15)
[2024-08-16] MEDS ORDERED: NITROGLYCERIN 0.4 MG SL TAB SL PRN (14:15)
[2024-08-16] MEDS ORDERED: DOCUSATE SOD 100 MG CAP PO PRN (14:15)
--- NOTE | 2024-08-16 14:26 | DVHHP2 ---
History of Present Illness Reason for Visit: Abnormal Labs History of Present Illness Iraj Vasquez is a 64-year-old male with past medical history of bladder cancer and BPH, who was sent to the hospital due to abnormal labs. Patients states he went to his primary care provider yesterday for routine check up. He had labs completed, and was called today and told to go to the ER due to elevated potassium levels. Patient states he had prostate issues that required a De La Cruz catheter over a year ago. He was following with urology, and had removed from his bladder about 1 year ago. He did not follow up with urology as an outpatient. Patient states he was urinating fine until about 3 weeks ago he started becoming incontinent and having difficulty controlling his urine. Patient was also diagnosed with hypertension yesterday, but has not started taking the medication prescribed to him yet. Heme/Onc: Cancer (bladder) Renal/: Benign prostatic enlarg. Smoke: No ALCOHOL: none Drugs: None Lives: Alone (brother is next door) Domestic Violence: Neg Review of Systems Constitutional: No: Fever, Chills, Sweats, Weakness, Malaise, Other Eyes: No: Pain, Vision change, Conjunctivae inflammation, Eyelid inflammation, Other, Redness ENT: No: Ear pain, Ear discharge, Nose pain, Nose discharge, Nose congestion, Mouth pain, Mouth swelling, Throat pain, Throat swelling, Other Respiratory: No: Cough, Dry, Shortness of breath, SOB with excertion, Wheezing, Hemoptysis, Pleuritic Pain, Sputum, Wheezing, Other Cardiovascular: No: Chest Pain, Palpitations, Orthopnea, Paroxysmal Noc. Dyspne a, Edema, Lt Headedness, Other Gastrointestinal: No: Nausea, Vomiting, Abdominal Pain, Diarrhea, Constipation, Melena, Hematochezia, Other Genitourinary: No Dysuria, No Frequency, No Incontinence, No Hematuria, No Retention, No Other Musculoskeletal: No: other, neck pain, shoulder pain, arm pain, back pain, hand pain, leg pain, foot pain Skin: No: Rash, Lesions, Jaundice, Bruising, Other Neurological: No: Weakness, Numbness, Incoordination, Change in speech, Confusion, Seizures, Other Other Abnormal labs Allergies: Coded Allergies: Penicillins (Verified Allergy, Unknown, 03/06/23) Medications Current Medications Medications Dose Ordered Sig/Melissa Route Start Time Stop Time Status Last Admin Dose Admin Zirconium Oxide 10 gm TID PO 08/16/24 22:00 08/18/24 14:01 Furosemide 80 mg BIDD IV 08/16/24 18:00 Acetaminophen/ Hydrocodone Bitart 1 tab Q4HP PRN PO 08/16/24 14:15 UNV Ondansetron HCl 4 mg Q4HP PRN IV 08/16/24 14:15 UNV Docusate Sodium 100 mg BIDPRN PRN PO 08/16/24 14:15 UNV Acetaminophen 650 mg Q6HP PRN PO 08/16/24 14:15 UNV Nitroglycerin 0.4 mg Q5MINP PRN SL 08/16/24 14:15 UNV Morphine Sulfate 2 mg Q30M PRN IV 08/16/24 14:15 UNV Exam Vital Signs Vital Signs Date Time Temp Pulse Resp B/P (MAP) Pulse Ox O2 Delivery O2 Flow Rate FiO2 08/16/24 10:56 71 08/16/24 10:50 98.0 18 160/93 (115) 98 General Appearance: Alert, Oriented X3, Cooperative, moderate distress HEENT: Atraumatic, PERRLA, Mucous membr. moist/pink Respiratory: Clear to auscultation, Normal air movement Cardiovascular: Regular rate, Normal S1, Normal S2, No murmurs Abdominal: Normal bowel sounds, Soft, No tenderness, No hepatospenomegaly Extremities: No clubbing, No cyanosis, Normal pulses, Other (bilateral lower extremity edema) Skin: No rashes, No breakdown, No significant lesion Neuro: Normal gait, Normal speech, Strength at 5/5 X4 ext Psych/Mental Status: Mental status NL, Mood NL Labs/Xrays Labs Test 08/16/24 10:50 Range/Units White Blood Count 9.0 4.4-10.8 10^3/uL Red Blood Count 3.97 L 4.5-5.90 10^6/uL Hemoglobin 11.2 L 13.5-17.5 g/dL Hematocrit 33.6 L 41.0-53.0 % Mean Corpuscular Volume 84.7 80.0-100.0 fL Mean Corpuscular Hemoglobin 28.3 28.0-32.0 pg Mean Corpuscular Hemoglobin Concent 33.4 32.0-36.0 g/dL Red Cell Distribution Width 13.5 11.8-14.3 % Platelet Count 271 140-450 10^3/uL Mean Platelet Volume 7.3 6.9-10.8 fL Neutrophils (%) (Auto) 81.1 H 37.0-80.0 % Lymphocytes (%) (Auto) 8.7 L 10.0-50.0 % Monocytes (%) (Auto) 6.5 0.0-12.0 % Eosinophils (%) (Auto) 2.7 0.0-7.0 % Basophils (%) (Auto) 1.0 0.0-2.0 % Neutrophils # (Auto) 7.3 1.6-8.6 10 ^3/uL Lymphocytes # (Auto) 0.8 0.4-5.4 10 ^3/uL Monocytes # (Auto) 0.6 0-1.3 10 ^3/uL Eosinophils # (Auto) 0.2 0-0.8 10 ^3/uL Basophils # (Auto) 0.1 0-0.2 10 ^3/uL Nucleated Red Blood Cells 0.0 % Sodium Level 139 136-145 mmol/L Potassium Level 6.1 *H 3.5-5.1 mmol/L Chloride Level 109 H 98-107 mmol/L Carbon Dioxide Level 18 L 20-31 mmol/L Anion Gap 12 5-15 Blood Urea Nitrogen 97 *H 9-23 mg/dL Creatinine 12.99 *H 0.700-1.30 mg/dL Glomerular Filtration Rate Calc 4 >90 mL/min BUN/Creatinine Ratio 7.5 L 10.0-20.0 Serum Glucose 116 H 74-106 mg/dL Calcium Level 9.4 8.7-10.4 mg/dL Assessment/Plan Assessment/Plan Assessment: Acute renal failure, hyperkalemia, Bladder/Prostate cancer, hypertension, BPH, Plan: Admit to Tele, Nephrology consult, Urology consult, Place De La Cruz catheter, IV hydration, Hyperkalemia protocol, Possible HD if potassium does not improve, Renal ultrasound, Home medications reconciled, Plan discussed with: Patient My Orders Orders - GILLIAN RANDHAWA [employer]ION MANAGER Procedure Category Date Status Time Admit ADMIT 08/16/24 Transmitted 14:12 Code Status CODE 08/16/24 Transmitted 14:12 Renal DIET 08/16/24 Transmitted Standard(2gna,3gk,Lopho) Dinner Hydrocodone-Acet PHA 08/16/24 Logged 5/325mg Tab ([place] 14:15 Ondansetron Hcl PHA 08/16/24 Logged (Zofran) 14:15 Docusate Sodium PHA 08/16/24 Logged Capsule (Colace 14:15 Complete Blood Count LAB 08/17/24 Verified 04:00 Comprehensive LAB 08/17/24 Verified Metabolic Panel 04:00 Acetaminophen Tablet PHA 08/16/24 Logged (Tylenol Tablet) 14:15 Nitroglycerin PHA 08/16/24 Logged Sublingual (Ntrostat 14:15 Morphine Sulfate PHA 08/16/24 Logged Injection 14:15 Stat Ekg For Chest [facility] 08/16/24 In Process Pain 14:12 Notify Md Of Changes [facility] 08/16/24 In Process From Base 14:12 Radio Installer Automobile For [facility] 08/16/24 In Process 24 Hours 14:12 Emergency Dysrhythmia [facility] 08/16/24 In Process Protocol 14:12 Rhythm Strips Once [facility] 08/16/24 In Process Every Shift 14:12 Oxygen By Nasal RT 08/16/24 Transmitted Cannula 14:12 Date of Service: Aug 16, 2024 Billing Provider: GILLIAN RANDHAWA Common Visit Codes: [id number] INP/OBS CARE (MOD) GILLIAN RANDHAWA Aug 16, 2024 14:26
--- NOTE | 2024-08-16 14:40 | DVH ---
RENAL ULTRASOUND CLINICAL HISTORY: RANDALL TECHNIQUE: Multiple ultrasound images of the kidneys and bladder were obtained. COMPARISON: None FINDINGS: The right kidney measures 11.9 cm in length. The left kidney measures 11.7 cm. There is mild bilatera l hydronephrosis. There is no sonographic evidence of nephrolithiasis. There is no discrete lesion i dentified by ultrasound. The bladder appears within normal limits with prevoid volume measuring 396 cc. Calculated prostate vo lume is 30 cc. IMPRESSION: 1. Mild bilateral hydronephrosis. There is no sonographic evidence of nephrolithiasis. HS:Y
--- NOTE | 2024-08-16 14:44 | ECG ---
[facility] Test Date: 2024-08-16 Test Time: 10:47:18 Pat Name: MOUNIKA PETIT Department: ER Room: [address] [place] [address] Gender: M Legal Administrator: BAN : 1960 Requested By: PARVEEN GOLDMAN Order Number: [id number] Reading MD: Gume Plascencia Measurements Intervals [place] Rate: 71 P: 64 [place]: 138 QRS: 59 QRSD: 137 T: 41 QT: 398 QTc: 433 Interpretive Statements Sinus rhythm Probable left atrial enlargement Right bundle branch block Electronically Signed On 08-16-2024 17:53:11 PST by Gume Plascencia Please click the below link to view image of tracing.
[2024-08-16] MEDS: LIDOCAINE 2% JELLY 11ml (GLYDO) UR ONE ×2 (15:00)
[2024-08-16] MEDS: LIDOCAINE 2% JELLY 11ml (GLYDO) ONE ×2 (15:28→16:12)
[2024-08-16] MEDS: SODIUM ZIRCONIUM CYCL 10 GM PAK PO ONE (15:34)
[2024-08-16] MEDS: FUROSEMIDE 40 MG/4 ML VIAL IV ONE (15:36)
[2024-08-16] MEDS: LIDOCAINE 2%HCL (LOCAL ANESTH.) INJ 10ml MDV IJ ONE (16:45)
[2024-08-16] MEDS: LIDOCAINE 1% HCL (LOCAL ANESTH.) INJ 20ML MDV ONE (16:53)
--- NOTE | 2024-08-16 17:33 | DVHINCON2 ---
Date of service: Aug 16, 2024 Reason for Consultation RANDALL History of Present Illness 64 years old with past medical history of hypertension bladder cancer, s/p turbt ,prostatomegaly, presented with chief of abnormal labs patient said he had bladder surgery year ago and however he did not follow with urologist after that patient does complain of urinary incontinence Also complains of lower abdominal pain Past Medical History per hpi Past Surgical History per hpi Cholecystectomy Allergies: Coded Allergies: Penicillins (Verified Allergy, Unknown, 03/06/23) Home Meds Active Scripts Hydrocortisone Acetate (Anusol-Hc) 25 Mg Sup, 1 SUPP WI BID, #14 SUPP Prov:PARVEEN GOLDMAN MD 08/05/24 Metronidazole (Flagyl) 500 Mg Tab, 1 TAB PO TID, #15 TAB Prov:GLENN ARNDT MD 09/17/23 Ciprofloxacin Hcl (Cipro) 500 Mg Tab, 1 TAB PO BID, #10 TAB Prov:GLENN ARNDT MD 09/17/23 Tamsulosin Hcl (Flomax) 0.4 Mg Cap, 1 CAP PO DAILY, #30 CAP Prov:KJ HODGES 06/19/23 Reported Medications Hydrocodone-Acetaminophen (Hydrocodone Bitartrate/AC 5-325 mg) 1 Tab Tab, 1 TAB PO Q4HP, TAB 09/13/23 Current Medications Current Medications Medications (Trade) Dose Ordered Sig/Melissa Route PRN Reason Start Time Stop Time Status Last Admin Zirconium Oxide (Lokelma) 10 gm TID PO 08/16/24 22:00 08/18/24 14:01 Furosemide (Lasix Injection) 80 mg BIDD IV 08/16/24 18:00 Acetaminophen/ Hydrocodone Bitart ([facility] 5/325MG Tab) 1 tab Q4HP PRN PO MODERATE PAIN (4-6 PAIN SCALE) 08/16/24 14:15 Ondansetron HCl (Zofran) 4 mg Q4HP PRN IV NAUSEA / VOMITING 08/16/24 14:15 Docusate Sodium (Colace Capsule) 100 mg BIDPRN PRN PO FOR CONSTIPATION 08/16/24 14:15 Acetaminophen (Tylenol Tablet) 650 mg Q6HP PRN PO PAIN SCALE 1-3 OR TEMP>100.4 08/16/24 14:15 Nitroglycerin (Ntrostat Sublingual) 0.4 mg Q5MINP PRN SL FOR CHEST PAIN 08/16/24 14:15 Morphine Sulfate 2 mg Q30M PRN IV FOR CHEST PAIN 08/16/24 14:15 Tamsulosin HCl (Flomax) 0.4 mg DAILY PO 08/17/24 10:00 Family History: FH: lung cancer G8 FATHER FHx: bladder cancer G8 MOTHER Review of Systems As per HPI H&P Exam Vital Signs/I&O Vital Sign Date Time Temp Pulse Resp B/P (MAP) Pulse Ox O2 Delivery O2 Flow Rate FiO2 08/16/24 15:36 157/75 08/16/24 13:30 98.0 83 12 97 98.0 Physical Exam General-not in any distress HEENT-normocephalic, no icterus, no pallor, neck supple Respiratory-fair air entry bilateral, no rhonchi, no wheeze [id number] heard, no murmurs appreciated Abdominal-soft, nontender, nondistended Musculoskeletal-3++ pedal edema, no calf tenderness Genitourinary-deferred Neuro-awake alert oriented x3, Psychiatric-not agitated, cooperative, Labs/Diagnostic Data Labs/Diagnostic Data Laboratory Tests Test 08/16/24 10:50 Range/Units White Blood Count 9.0 4.4-10.8 10^3/uL Red Blood Count 3.97 L 4.5-5.90 10^6/uL Hemoglobin 11.2 L 13.5-17.5 g/dL Hematocrit 33.6 L 41.0-53.0 % Mean Corpuscular Volume 84.7 80.0-100.0 fL Mean Corpuscular Hemoglobin 28.3 28.0-32.0 pg Mean Corpuscular Hemoglobin Concent 33.4 32.0-36.0 g/dL Red Cell Distribution Width 13.5 11.8-14.3 % Platelet Count 271 140-450 10^3/uL Mean Platelet Volume 7.3 6.9-10.8 fL Neutrophils (%) (Auto) 81.1 H 37.0-80.0 % Lymphocytes (%) (Auto) 8.7 L 10.0-50.0 % Monocytes (%) (Auto) 6.5 0.0-12.0 % Eosinophils (%) (Auto) 2.7 0.0-7.0 % Basophils (%) (Auto) 1.0 0.0-2.0 % Neutrophils # (Auto) 7.3 1.6-8.6 10 ^3/uL Lymphocytes # (Auto) 0.8 0.4-5.4 10 ^3/uL Monocytes # (Auto) 0.6 0-1.3 10 ^3/uL Eosinophils # (Auto) 0.2 0-0.8 10 ^3/uL Basophils # (Auto) 0.1 0-0.2 10 ^3/uL Nucleated Red Blood Cells 0.0 % Sodium Level 139 136-145 mmol/L Potassium Level 6.1 *H 3.5-5.1 mmol/L Chloride Level 109 H 98-107 mmol/L Carbon Dioxide Level 18 L 20-31 mmol/L Anion Gap 12 5-15 Blood Urea Nitrogen 97 *H 9-23 mg/dL Creatinine 12.99 *H 0.700-1.30 mg/dL Glomerular Filtration Rate Calc 4 >90 mL/min BUN/Creatinine Ratio 7.5 L 10.0-20.0 Serum Glucose 116 H 74-106 mg/dL Calcium Level 9.4 8.7-10.4 mg/dL Assessment Acute kidney injury possibly obstructive uropathy Bilateral hydronephrosis mild Hyperkalemia Metabolic acidosis Bladder cancer status post turbt Noncompliance Recommendations Medical management of hyperkalemia as ordered Bicarb drip as ordered for 1 L Lasix IV b.i.d. for potassium excretion and peripheral edema Stat De La Cruz catheter Low-potassium diet If renal function does not improve in the next 24 to 48 hours we will consider dialysis Discussed with patient Urology consult Reviewed vital signs, lab work, imaging studies, medications, microbiology, other physician recommendations Total time spent 80 minutes More than 50% of the time spent providing direct [id number] care . Thank you for allowing me to participate in the care of your patient. Plan discussed with: Patient JORGE RENNER MD Aug 16, 2024 17:33
--- NOTE | 2024-08-16 17:59 | DVHINCON2 ---
Date of service: Aug 16, 2024 Referring Physician Hospitalist Reason for Consultation urinary retention History of Present Illness History Source: Patient, RN Notes, MD Notes, Old Records Exam Limitations: No limitations HPI 64 yo male with history of prostate cancer no treatment to date. He had TURBT of bladder neck 09/08/2023, pathology showed prostate cancer leny 8 with perineural invasion. He did not follow up due to gallbladder surgery. He was under the impression that his cancer was removed during biopsy and that there was no further treatment needed. He presented to the ER after his PCP informed him his Potassium was high. He was found to be in urinary retention. Multiple attempts from ER staff to place christina unsuccessfully. Bedside cysto attempted. Urethral false passage noted unable to access the bladder even with guidewire. Therefore I elected to place SPT using a [place] kit under ultrasound guidance. patient tolerated well. 1100 mls out. Home Meds Active Scripts Ciprofloxacin Hcl (Ciprofloxacin Hcl) 500 Mg Tab, 1 TAB PO BID for 5 Days, #10 TAB Prov:MICHEL CHARLTON 08/23/24 Lactulose (Lactulose) 10 Gm/15 Ml Disha, 30 ML PO DAILY for 30 Days, #30 ML Prov:MICHEL CHARLTON 08/23/24 Acetaminophen (Acetaminophen) 325 Mg Tab, 650 MG PO Q6HP PRN for 10 Days, #80 TAB Prov:MICHEL CHARLTON 08/23/24 Relugolix (Orgovyx) 120 Mg Tab, 120 MG PO DAILY for 90 Days, #90 TAB Prov:KORI BAUMAN MD 08/22/24 Hydrocortisone Acetate (Anusol-Hc) 25 Mg Sup, 1 SUPP IN BID, #14 SUPP Prov:PARVEEN GOLDMAN MD 08/05/24 Tamsulosin Hcl (Flomax) 0.4 Mg Cap, 1 CAP PO DAILY, #30 CAP Prov:KJ HODGES 06/19/23 Past Medical History Patient Family History: FH: lung cancer G8 FATHER FHx: bladder cancer G8 MOTHER Review of Systems Genitourinary: Hematuria, Retention, Pain H&P Exam Vital Signs Vital Signs Date Time Temp Pulse Resp B/P (MAP) Pulse Ox O2 Delivery O2 Flow Rate FiO2 08/16/24 15:36 157/75 08/16/24 13:30 98.0 83 12 97 98.0 General Appeara: Well developed, Well nourished, Normal Appearance, Mild distress Abdominal Exam: Other (distended) Male Genital Exam: Normal genitalia Neuro/Mental St: Alert, Oriented Appearance: Appropriate appearance, Appropriate insight Eye contact/ Speech: Cooperative, Good eye contact, Normal speech Skin Exam: Normal inspection, Normal color, Warm/dry Labs/Xrays Labs Test 08/16/24 10:50 Range/Units White Blood Count 9.0 4.4-10.8 10^3/uL Red Blood Count 3.97 L 4.5-5.90 10^6/uL Hemoglobin 11.2 L 13.5-17.5 g/dL Hematocrit 33.6 L 41.0-53.0 % Mean Corpuscular Volume 84.7 80.0-100.0 fL Mean Corpuscular Hemoglobin 28.3 28.0-32.0 pg Mean Corpuscular Hemoglobin Concent 33.4 32.0-36.0 g/dL Red Cell Distribution Width 13.5 11.8-14.3 % Platelet Count 271 140-450 10^3/uL Mean Platelet Volume 7.3 6.9-10.8 fL Neutrophils (%) (Auto) 81.1 H 37.0-80.0 % Lymphocytes (%) (Auto) 8.7 L 10.0-50.0 % Monocytes (%) (Auto) 6.5 0.0-12.0 % Eosinophils (%) (Auto) 2.7 0.0-7.0 % Basophils (%) (Auto) 1.0 0.0-2.0 % Neutrophils # (Auto) 7.3 1.6-8.6 10 ^3/uL Lymphocytes # (Auto) 0.8 0.4-5.4 10 ^3/uL Monocytes # (Auto) 0.6 0-1.3 10 ^3/uL Eosinophils # (Auto) 0.2 0-0.8 10 ^3/uL Basophils # (Auto) 0.1 0-0.2 10 ^3/uL Nucleated Red Blood Cells 0.0 % Sodium Level 139 136-145 mmol/L Potassium Level 6.1 *H 3.5-5.1 mmol/L Chloride Level 109 H 98-107 mmol/L Carbon Dioxide Level 18 L 20-31 mmol/L Anion Gap 12 5-15 Blood Urea Nitrogen 97 *H 9-23 mg/dL Creatinine 12.99 *H 0.700-1.30 mg/dL Glomerular Filtration Rate Calc 4 >90 mL/min BUN/Creatinine Ratio 7.5 L 10.0-20.0 Serum Glucose 116 H 74-106 mg/dL Calcium Level 9.4 8.7-10.4 mg/dL Assessment/Plan Problem List: (1) Tendinitis (2) Arm pain, diffuse (3) Urinary retention (4) Christina catheter in place (5) Acute calculous cholecystitis (6) UTI (urinary tract infection) (7) Cholelithiasis and cholecystitis without obstruction (8) Elevated liver enzymes (9) Encounter for wound re-check (10) Internal hemorrhoids (11) Hyperkalemia (12) Generalized weakness (13) Acute renal failure Plan Patient will need a cystoscopy and TURP Management for his prostate cancer with hormonal therapy versus chemotherapy versus radiation to be considered pending bone scan results Plan discussed with: Patient, Other JACOBY COREAS NP Aug 16, 2024 17:59
[2024-08-16] MEDS: SODIUM BICARB 50mEq/50ml Vial 100 ML in D5W 5% 1,000 ML IV ONE (18:30)
[2024-08-16 18:49] LABS: Anion Gap 14 (5-15); Carbon Dioxide 21 mmol/L (20-31)
[2024-08-16 18:50] LABS: Calcium 9.4 mg/dL (8.7-10.4)
[2024-08-16 18:54] LABS: BUN/Creatinine Ratio 7.8 (10.0-20.0); Glucose 87 mg/dL (74-106)
[2024-08-16 19:01] LABS: Sodium 141 mmol/L (136-145)
[2024-08-16 19:02] LABS: Chloride 106 mmol/L (98-107); Potassium 5.1 mmol/L (3.5-5.1)
[2024-08-16 19:10] LABS: Blood Urea Nitrogen 90 mg/dL (9-23)
[2024-08-16] MEDS: FUROSEMIDE 100 MG/10ML VIAL IV SCH (19:16)
[2024-08-16 19:45] VITALS: PULSE 98; RESP 20; O2SAT 95
--- NOTE | 2024-08-16 19:50 | DVH ---
Exam: CT CT AB PEL WO CON-NO ORAL OR IV History: BLADDER CANCER Comparison Study: None available at time of dictation. TECHNIQUE: Multidetector CT of the abdomen was performed from lung bases to pubic symphysis. Imaging was performed without IV contrast. Axial, coronal and sagittal multiplanar reformats were obtained fr om the axial data set by the technologist. Radiation Dose Information: CT Dose: CTDI volume is 10.84 mGy. Dose-length product is 600.82 mGy*cm FINDINGS: Evaluation of solid organs is limited due to lack of intravenous contrast use. Findings: Lung Bases: No acute or significant lung base finding. Coronary artery calcifications. When compared to Liver: The liver is normal in size. No focal lesions. Gallbladder and Biliary Tree: Gallbladder has been surgically removed. Spleen: Unremarkable Pancreas: The pancreas is grossly normal in appearance. Adrenal Glands: Unremarkable Kidneys: Kidneys are grossly normal without calculi or hydronephrosis. Bladder: Suprapubic catheter in place. Bowel: The stomach is grossly normal in appearance. Stable hiatal hernia Small bowel and colon are no rmal in caliber and distribution. The appendix is not visualized; however, no secondary findings of acute appendicitis identified. Ascites: Absent Lymphadenopathy: No mesenteric, retroperitoneal or periportal lymphadenopathy. Abdominal Wall and Mesentery: Unremarkable. Vasculature: The visualized abdominal aorta is normal in size and caliber. Evaluation of abdominal a nd pelvic vessels is limited due to lack of intravenous contrast. Pelvic Organs: Unremarkable Musculoskeletal: No aggressive focal bony lesions, acute fractures or dislocation. Soft tissues: Unremarkable IMPRESSION: 1. Trace right pleural effusion. 2. Trace pericardial effusion. 3. Stable hiatal hernia. 4. Suprapubic catheter in place. Radiation optimization: All CT scans at this facility use at least one of these dose optimization te chniques: automated exposure control mA and/or kV adjustment per patient size (includes targeted exa ms where dose is matched to clinical indication) or iterative reconstruction.
[2024-08-16] MEDS ORDERED: SODIUM ZIRCONIUM CYCL 10 GM PAK PO SCH (22:00)
[2024-08-16 22:29] VITALS: BP 139/71; PULSE 74; RESP 13; TEMP 98.1; O2SAT 98
[2024-08-17] VITALS (8 sets, daily range): BP systolic 93–117; BP diastolic 54–73; PULSE 66–93; RESP 12–18; TEMP 97.6–98.1; O2SAT 0–98
[2024-08-17 06:19] LABS: Basophils # (auto) 0 10 ^3/uL (0-0.2); Basophils % (auto) 0.4 % (0.0-2.0); Eosinophils # (auto) 0.1 10 ^3/uL (0-0.8); Eosinophils % (auto) 0.7 % (0.0-7.0); Hematocrit 33.2 % (41.0-53.0); Hemoglobin 11.5 g/dL (13.5-17.5); Lymphocytes # (auto) 0.9 10 ^3/uL (0.4-5.4); Lymphocytes % (auto) 10.7 % (10.0-50.0); Mean Corpuscular Hemoglobin 28.4 pg (28.0-32.0); Mean Corpuscular Hgb Conc. 34.5 g/dL (32.0-36.0); Mean Corpuscular Volume 82.3 fL (80.0-100.0); Monocytes # (auto) 0.7 10 ^3/uL (0-1.3); Monocytes % (auto) 8.1 % (0.0-12.0); Neutrophils # (auto) 6.9 10 ^3/uL (1.6-8.6); Neutrophils % (auto) 80.1 % (37.0-80.0); Platelet Count (auto) 252 10^3/uL (140-450); Red Blood Cells 4.04 10^6/uL (4.5-5.90); Red Cell Distribution Width 13.2 % (11.8-14.3); White Blood Cell 8.6 10^3/uL (4.4-10.8)
[2024-08-17 06:39] LABS: Alanine Aminotransferase 15 U/L (7-40); Alkaline Phosphatase 76 U/L (46-116); Anion Gap 12 (5-15); BUN/Creatinine Ratio 10.2 (10.0-20.0); Calcium 9.2 mg/dL (8.7-10.4); Carbon Dioxide 24 mmol/L (20-31); Chloride 100 mmol/L (98-107); Potassium 3.7 mmol/L (3.5-5.1); Sodium 136 mmol/L (136-145); Total Protein 6.9 g/dL (5.7-8.2)
[2024-08-17 06:41] LABS: Aspartate Aminotransferase 13 U/L (13-40); Bilirubin, Total 0.2 mg/dL (0.2-1.0); Blood Urea Nitrogen 52 mg/dL (9-23); Glucose 127 mg/dL (74-106)
[2024-08-17] MEDS: TAMSULOSIN HYDROCHLORIDE 0.4 MG CAP PO SCH (10:00)
--- NOTE | 2024-08-17 10:33 | DVHPNRES ---
Progress Note Date Seen: Aug 17, 2024 Resident Creating Document: VOLODYMYR ANANDSADANICHOLAS RESIDENT Medical Necessity Reason Pt with a Central, PICC or Fol: No Subjective Review of Systems Patient is a 64 year old male with a past medical history of Bladder cancer s/p TURBT in 2023, prostatomegaly likely prostate cancer no surgery done came to the ER following abnormal lab results noted by his PCP . Patient reports that he had a christina's catheter for almost an year till he got the TURBT in august 2023 after which the catheter was removed and he was able to urinate normally. He was apparently well until 3 weeks ago when he started to have symptoms of incontinence and retention likely overflow incontinence. He was not able to control urine and had to wear diapers. He was also experiencing lower abdominal pain in the the suprapubic region and across the lower abdomen. Patient came to the ER and his labs showed creatinine at 12.99 with very low GFR, had bilateral pedal edema. Multiple attempts were made to put a christina catheter without success and urology were consulted who again tried to put a christina catheter without success and eventually they had to put a suprapubic catheter with drainage of about 1100ml urine. Past medical history: Bladder CA s/p TURBT, prostate CA, prostatomegaly Past surgical history: TURBT, cholecystectomy social history: patient denies smoking, alcohol, drug use Home medications: tamsulosin 0.4mg, amlodipine 5mg Review of systems Patient seen and examined at the bedside. Reports no pain in the suprapubic region at present s/p SP cath reports bowel movement yesterday, had diarrhoea since the last few days Objective vital signs Vital Sign Date Time Temp Pulse Resp B/P (MAP) Pulse Ox O2 Delivery O2 Flow Rate FiO2 08/17/24 08:30 97.6 70 16 93/61 (72) 97 97.6 08/16/24 22:29 Room Air* 0 21 Total Intake and Output 08/16/24 08/16/24 08/17/24 15:00 23:00 07:00 Intake Total 800 ml 545 ml Output Total 3000 ml 2600 ml Balance -2200 ml -2055 ml medications Current Medications Medications Dose Ordered Sig/Melissa Route Start Time Stop Time Status Last Admin Dose Admin Furosemide 80 mg BIDD IV 08/16/24 18:00 08/17/24 05:28 80 MG Acetaminophen/ Hydrocodone Bitart 1 tab Q4HP PRN PO 08/16/24 14:15 Ondansetron HCl 4 mg Q4HP PRN IV 08/16/24 14:15 Acetaminophen 650 mg Q6HP PRN PO 08/16/24 14:15 Tamsulosin HCl 0.4 mg DAILY PO 08/17/24 10:00 Examination Physical Examination Constitutional: Patient was alert and oriented to time, place and person and does not appear to be in any acute distress Gen - no pallor, no icterus, no cyanosis, no clubbing, no LAD, trace pedal edema bilaterally . Skin - Patients skin is warm and dry.. HEENT - normocephalic, atraumatic, dry mucous membranes. Neck - full ROM, no LAD, no JVD Pulmonary - B/L vesicular breath sounds. no crackles , no wheezing, no stridor. cardiovascular - normal S1,S2 heard. no murmurs heard. peripheral pulses normal radial 2+, pedal 2+. capillary refill normal <2 secs. GI - soft abdomen with minimal tenderness tenderness to palpation in the suprapubic area. no hepatospleenomegaly. Bowel sounds normoactive Neurological - Bilateral upper extremity strength 5/5, bilateral lower extremity strength 5/5, no facial droop, normal speech, no tremor, no sensory deficiets. : Patient has a suprapubic catheter draining slightly blood tinged pinkish yellow urine. laboratory and microbiology Laboratory Tests 08/17/24 05:51 Test 08/17/24 05:51 Range/Units Serum Glucose 127 H 74-106 mg/dL Problem List/Assessment/Plan Problem List/Assessment/Plan Assessment Acute urinary obstruction likely due to enlarged prostate ?Prostate cancer H/o bladder cancer s/p TURBT Acute renal injury likely due to obstructive uropathy Bilateral hydronephrosis Hyperkalemia - renal ultrasound shows bilateral hydronephrosis - PSA elevated >100 - CT abdomen pelvis without contrast showed trace pericardial effusion, trace right pleural effusion, small hiatal hernia, suprapubic catheter in place Plan - patient has a suprapubic catheter - urology on board plans to do cystoscopy with direct vision internal urethrotomy and Transurethral resection of prostate - nuclear medicine bone report pending - kidney function improving with serum creatinine going down - echo pending - urine culture pending - on furosemide 80 mg b.i.d. IV - tamsulosin 0.4 mg p.o. daily - monitor BMP - patient on telemetry Goals of care discussed with the patient for over 23 minutes. Full code Plan discussed with Dr. Bauman Plan discussed with: Patient Date of Service: Aug 17, 2024 Billing Provider: KORI BAUMAN MD Common Visit Codes: [id number] INP/OBS CARE(HIGH) STARLA ANAND RESIDENT Aug 17, 2024 10:33 KORI BAUMAN MD Aug 21, 2024 18:35
[2024-08-17] MEDS: ONDANSETRON HCL 4 MG/2 ML VIAL IV PRN (12:11)
--- NOTE | 2024-08-17 16:09 | DVHPN2 ---
Progress Note - Dictate Date Seen: Aug 17, 2024 Medical Necessity Reason Pt with a Central, PICC or Fol: Yes The following are medically ne: De La Cruz Catheter Medical Necessity Reason PSA greater than 100 Urinary retention, unable to place De La Cruz catheter requiring an emergent suprapubic cystotomy tube placement by GUNRusty. Subjective Patient just came back from bone scan and is tolerating the suprapubic catheter well. vital signs Vital Sign Date Time Temp Pulse Resp B/P (MAP) Pulse Ox O2 Delivery O2 Flow Rate FiO2 08/17/24 08:30 97.6 70 16 93/61 (72) 97 97.6 08/16/24 22:29 Room Air* 0 21 Total Intake and Output 08/16/24 08/16/24 08/17/24 15:00 23:00 07:00 Intake Total 800 ml 545 ml Output Total 3000 ml 2600 ml Balance -2200 ml -2055 ml medications Current Medications Medications Dose Ordered Sig/Melissa Route Start Time Stop Time Status Last Admin Dose Admin Furosemide 80 mg BIDD IV 08/16/24 18:00 08/17/24 05:28 80 MG Acetaminophen/ Hydrocodone Bitart 1 tab Q4HP PRN PO 08/16/24 14:15 Ondansetron HCl 4 mg Q4HP PRN IV 08/16/24 14:15 08/17/24 12:11 4 MG Acetaminophen 650 mg Q6HP PRN PO 08/16/24 14:15 Tamsulosin HCl 0.4 mg DAILY PO 08/17/24 10:00 objective Urine is clear in the suprapubic catheter drainage system laboratory and microbiology Laboratory Tests 08/17/24 05:51 Test 08/17/24 05:51 Range/Units Serum Glucose 127 H 74-106 mg/dL Problem List Creatinine has decreased to 5.09 Assessment/Plan Patient will need a cystoscopy and TURP Management for his prostate cancer with hormonal therapy versus chemotherapy versus radiation to be considered pending bone scan results Plan discussed with: Patient, Other DEJAN ALVARADO MD Aug 17, 2024 16:09
--- NOTE | 2024-08-17 17:11 | DVH ---
Procedure: NM BONE WHOLE BODY Exam Date: 08/17/2024 03:00 PM Reason for study/Clinical History: prostate cancer Comparison Study: None available at time of dictation. Prior correlative imaging: CT scan dated 08/16/2024 Nuclear Medicine Whole Body Bone Scan Technique: Following the intravenous administration of 25 millicuries of technetium 99m labeled MDP, whole body images in the anterior and posterior projections were obtained 3 hours following the administration o f radiopharmaceutical. Findings: Large, intense radiotracer activity noted in the left sacral ala. Moderate-sized, intense radiotrace r activity noted in the region of manubrium and upper thoracic spine superimposed on each other and d ifficult to differentiate in the anterior and posterior views without oblique views if manubrial or t horacic in location. Subcentimeter focus of radiotracer activity in left side of the L4. The expected mild activity is noted overlying both kidneys and the bladder without evidence of obstru ction. 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 To better locate pathology in the chest, recommend further evaluat ion with chest CT scan.
--- NOTE | 2024-08-17 17:18 | DVHPN2 ---
Progress Note Date Seen: Aug 17, 2024 Medical Necessity Reason Pt with a Central, PICC or Fol: Yes Subjective Patient reports: Other (No new complaints) Review of Systems: HEENT:Normal, CVS:Normal, RESPIRATORY:Normal, GI:Normal, :Normal, MSK:Normal, NEURO:Normal Objective vital signs Vital Sign Date Time Temp Pulse Resp B/P (MAP) Pulse Ox O2 Delivery O2 Flow Rate FiO2 08/17/24 16:43 98.0 66 15 109/65 (80) 97 98.0 08/16/24 22:29 Room Air* 0 21 Total Intake and Output 08/16/24 08/16/24 08/17/24 15:00 23:00 07:00 Intake Total 800 ml 545 ml Output Total 3000 ml 2600 ml Balance -2200 ml -2055 ml medications Current Medications Medications Dose Ordered Sig/Melissa Route Start Time Stop Time Status Last Admin Dose Admin Furosemide 80 mg BIDD IV 08/16/24 18:00 08/17/24 05:28 80 MG Acetaminophen/ Hydrocodone Bitart 1 tab Q4HP PRN PO 08/16/24 14:15 Ondansetron HCl 4 mg Q4HP PRN IV 08/16/24 14:15 08/17/24 12:11 4 MG Acetaminophen 650 mg Q6HP PRN PO 08/16/24 14:15 Tamsulosin HCl 0.4 mg DAILY PO 08/17/24 10:00 Sodium Chloride 1,000 ml @ 100 mls/hr Q10H IV 08/17/24 17:15 UNV Examination: GENERAL:Normal, HEENT:Normal, NECK:Normal, LUNGS:Normal, CVS:Normal, ABDOMEN:Abnormal (Suprapubic catheter), MSK:Normal, SKIN:Normal, NEURO:Normal, :Abnormal laboratory and microbiology Laboratory Tests 08/17/24 05:51 Test 08/17/24 05:51 Range/Units Serum Glucose 127 H 74-106 mg/dL Problem List/Assessment/Plan Problem List/Assessment/Plan Acute kidney injury secondary to obstructive uropathy Bilateral hydronephrosis mild Hyperkalemia now improved Metabolic acidosis Prostate cancer Noncompliance Recommendations Status post suprapubic catheter by Urology Plan for cystoscopy and TURP noted NS IV as ordered Lasix b.i.d. to augment urine volumes for now Greater than 5 L urine output noted Renal function better no indication for dialysis now Plan discussed with: Patient My Orders My Orders Orders - JORGE RENNER MD Procedure Category Date Status Time * Urology Consult CONS 08/16/24 Transmitted 17:21 Sodium Chloride 0.9% PHA 08/17/24 Logged 17:15 Furosemide Injection PHA 08/17/24 Verified (Lasix Injection) 18:00 Critical Care Time (mins): 45 JORGE RENNER MD Aug 17, 2024 17:18
[2024-08-17] MEDS: FUROSEMIDE 100 MG/10ML VIAL IV SCH (18:24)
[2024-08-17] MEDS: SODIUM CHLORIDE 0.9% 1,000 ML IV SCH (18:29)
[2024-08-17 22:04] LABS: Urine Bacteria FEW /hpf (None Seen); Urine Blood 3+ /uL (Negative); Urine Budding Yeast OCCASIONAL /hpf (None Seen); Urine Clarity Turbid (Clear); Urine Color Light-Brown (Yellow); Urine Hyaline Cast FEW /lpf (0 - 2); Urine Protein, UAD 2+ (Negative); Urine Specific Gravity 1.012 (1.001-1.035); Urine Squamous Epithelial Cell FEW /hpf (<5); Urine Urobilinogen Normal (Negative); Urine WBC 72 /HPF (0-3)
[2024-08-18] VITALS (8 sets, daily range): BP systolic 95–132; BP diastolic 54–88; PULSE 67–82; RESP 16–20; TEMP 97.5–98.4; O2SAT 94–99
[2024-08-18] MEDS: cefTRIAXone 1GM/50ML D5W 50 ML IV ONE (00:01)
[2024-08-18 07:34] LABS: Basophils # (auto) 0 10 ^3/uL (0-0.2); Basophils % (auto) 0.5 % (0.0-2.0); Eosinophils # (auto) 0.2 10 ^3/uL (0-0.8); Eosinophils % (auto) 2.7 % (0.0-7.0); Hematocrit 35.1 % (41.0-53.0); Hemoglobin 11.9 g/dL (13.5-17.5); Lymphocytes % (auto) 10.7 % (10.0-50.0); Mean Corpuscular Hemoglobin 28.1 pg (28.0-32.0); Mean Corpuscular Hgb Conc. 33.9 g/dL (32.0-36.0); Mean Corpuscular Volume 82.7 fL (80.0-100.0); Monocytes # (auto) 0.7 10 ^3/uL (0-1.3); Monocytes % (auto) 7.2 % (0.0-12.0); Neutrophils # (auto) 7.2 10 ^3/uL (1.6-8.6); Neutrophils % (auto) 78.9 % (37.0-80.0); Nucleated Red Blood Cells % 0.2 %; Platelet Count (auto) 285 10^3/uL (140-450); Red Blood Cells 4.25 10^6/uL (4.5-5.90); Red Cell Distribution Width 13.3 % (11.8-14.3); White Blood Cell 9.2 10^3/uL (4.4-10.8)
[2024-08-18 07:36] LABS: Chloride 101 mmol/L (98-107); Potassium 3.9 mmol/L (3.5-5.1)
[2024-08-18 07:37] LABS: Anion Gap 11 (5-15); Calcium 9.2 mg/dL (8.7-10.4); Carbon Dioxide 23 mmol/L (20-31)
[2024-08-18 07:40] LABS: Sodium 135 mmol/L (136-145)
[2024-08-18 07:42] LABS: BUN/Creatinine Ratio 13.2 (10.0-20.0); Glucose 101 mg/dL (74-106)
[2024-08-18 07:43] LABS: Magnesium 1.8 mg/dL (1.6-2.6)
[2024-08-18 07:44] LABS: Phosphorus 3.3 mg/dL (2.4-5.1)
[2024-08-18 07:47] LABS: Blood Urea Nitrogen 32 mg/dL (9-23)
--- NOTE | 2024-08-18 09:47 | DVHPN2 ---
Progress Note Date Seen: Aug 18, 2024 Medical Necessity Reason Pt with a Central, PICC or Fol: Yes Subjective Patient reports: Feels better Review of Systems: HEENT:Normal, CVS:Normal, RESPIRATORY:Normal, GI:Normal, :Normal, MSK:Normal, NEURO:Normal Objective vital signs Vital Sign Date Time Temp Pulse Resp B/P (MAP) Pulse Ox O2 Delivery O2 Flow Rate FiO2 08/18/24 05:22 104/54 08/18/24 05:00 98.1 68 19 94 98.1 08/17/24 20:00 Room Air* 0 21 Total Intake and Output 08/17/24 08/17/24 08/18/24 15:00 23:00 07:00 Intake Total 1975 ml Output Total 750 ml 1450 ml Balance -750 ml 525 ml medications Current Medications Medications Dose Ordered Sig/Melissa Route Start Time Stop Time Status Last Admin Dose Admin Acetaminophen/ Hydrocodone Bitart 1 tab Q4HP PRN PO 08/16/24 14:15 Ondansetron HCl 4 mg Q4HP PRN IV 08/16/24 14:15 08/17/24 12:11 4 MG Acetaminophen 650 mg Q6HP PRN PO 08/16/24 14:15 Tamsulosin HCl 0.4 mg DAILY PO 08/17/24 10:00 Sodium Chloride 1,000 ml @ 100 mls/hr Q10H IV 08/17/24 17:15 08/18/24 03:11 100 MLS/HR Furosemide 40 mg BIDD IV 08/17/24 18:00 08/18/24 05:22 40 MG Ceftriaxone Sodium 50 ml @ 100 mls/hr Q24H IV 08/18/24 23:00 Examination: GENERAL:Normal, HEENT:Normal, NECK:Normal, LUNGS:Normal, CVS:Normal, ABDOMEN:Normal, MSK:Normal, SKIN:Normal, NEURO:Normal, :Abnormal laboratory and microbiology Laboratory Tests 08/18/24 06:58 Test 08/18/24 06:58 Range/Units Serum Glucose 101 74-106 mg/dL Problem List/Assessment/Plan Problem List/Assessment/Plan Acute kidney injury secondary to obstructive uropathy Bilateral hydronephrosis mild Hyperkalemia now improved Metabolic acidosis Prostate cancer Noncompliance Recommendations Status post suprapubic catheter by Urology Plan for cystoscopy and TURP noted NS IV as ordered hold las Renal function better no indication for dialysis now Plan discussed with: Patient My Orders My Orders Orders - JORGE RENNER MD Procedure Category Date Status Time Sodium Chloride 0.9% PHA 08/17/24 In Process 17:15 Furosemide Injection PHA 08/17/24 In Process (Lasix Injection) 18:00 JORGE RENNER MD Aug 18, 2024 09:47
[2024-08-18] MEDS: SODIUM CHLORIDE 0.9% 1,000 ML IV SCH (10:00)
--- NOTE | 2024-08-18 13:04 | DVHPN2 ---
Progress Note - Dictate Date Seen: Aug 18, 2024 Medical Necessity Reason Pt with a Central, PICC or Fol: Yes Medical Necessity Reason Urinary retention requiring suprapubic catheter insertion Metastatic prostate cancer vital signs Vital Sign Date Time Temp Pulse Resp B/P (MAP) Pulse Ox O2 Delivery O2 Flow Rate FiO2 08/18/24 09:00 97.9 75 20 132/87 (102) 98 97.9 08/18/24 08:00 Room Air* 0 21 Total Intake and Output 08/17/24 08/17/24 08/18/24 15:00 23:00 07:00 Intake Total 1975 ml Output Total 750 ml 1450 ml Balance -750 ml 525 ml medications Current Medications Medications Dose Ordered Sig/Melissa Route Start Time Stop Time Status Last Admin Dose Admin Acetaminophen/ Hydrocodone Bitart 1 tab Q4HP PRN PO 08/16/24 14:15 Ondansetron HCl 4 mg Q4HP PRN IV 08/16/24 14:15 08/17/24 12:11 4 MG Acetaminophen 650 mg Q6HP PRN PO 08/16/24 14:15 Tamsulosin HCl 0.4 mg DAILY PO 08/17/24 10:00 Ceftriaxone Sodium 50 ml @ 100 mls/hr Q24H IV 08/18/24 23:00 Sodium Chloride 1,000 ml @ 50 mls/hr Q20H IV 08/18/24 10:00 objective Urine is clear in the suprapubic catheter drainage system PATIENT: MOUNIKA PETIT ALANACCT: [id number] UNIT: [id number] : 1960 LOC: [facility] ROOM / BED: [address] [place] [address] AGE / SEX: 64 / M ADM STATUS: ADM IN SERVICE 1000 ORDERING PHYSICIAN: JACOBY COREAS NP PROCEDURE(s): [facility] - BONE WHOLE BODY REASON: prostate cancer ORDER NUMBER(s): [id number], ACCESSION NUMBER(s): [id number] Procedure: [place] BONE WHOLE BODY Exam Date: 08/17/2024 03:00 PM Reason for study/Clinical History: prostate cancer Comparison Study: None available at time of dictation. Prior correlative imaging: CT scan dated 08/16/2024 Nuclear Medicine Whole Body Bone Scan Technique: Following the intravenous administration of 25 millicuries of technetium 99m labeled MDP, whole body images in the anterior and posterior projections were obtained 3 hours following the administration of radiopharmaceutical. Findings: Large, intense radiotracer activity noted in the left sacral ala. Moderate- sized, intense radiotracer activity noted in the region of manubrium and upper thoracic spine superimposed on each other and difficult to differentiate in the anterior and posterior views without oblique views if manubrial or thoracic in location. Subcentimeter focus of radiotracer activity in left side of the L4. The expected mild activity is noted overlying both kidneys and the bladder without evidence of obstruction. 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 To better locate pathology in the chest, recommend further evaluation with chest CT scan. ATED BY: ALMA MORA MD DICTATED DATE/TIME: 08/17/241708 SIGNED BY: ALMA MORA MD SIGNED DATE/TIME: 08/17/241708 CC: laboratory and microbiology Laboratory Tests 08/18/24 06:58 Test 08/18/24 06:58 Range/Units Serum Glucose 101 74-106 mg/dL Problem List Creatinine has decreased to 5.09-->2.42 Assessment/Plan Patient will need a cystoscopy and TURP- TBA for 08/20/24 Management for his prostate cancer with hormonal therapy TBA Plan discussed with: Patient DEJAN ALVARADO MD Aug 18, 2024 13:04
--- NOTE | 2024-08-18 16:26 | DVHSR ---
APPROVED REPORT EXAM: Two-dimensional and M-mode echocardiogram with Doppler and color Doppler. Blood Pressure: 93/61 mmHg INDICATION Pericardial Effusion on CT RISK FACTORS Height: 5' 8", Weight: 161 DIMENSIONS LVDd4.6 (3.8-5.7cm)LA (2D)4.2 (1.9-4.0cm)Aortic Root3.5 (2.0-3.7cm) LVDs3.2 (2.5-4.0cm)LA (MM) (1.9-4.0cm)Aortic Cusp Exc1.4 (1.5-2.0cm) EF (%) 60.0 (55-70%)Rt. Atrium4.1 (1.9-4.0cm)Asc. Aorta cm IVSd1.2 (0.7-1.1cm)RV (D) (1.8-2.4cm) PWd1.2 (0.7-1.1cm) Mitral Valve MitralMitral Stenosis E wave0.60m/sMV Mean GR.mmHg A wave0.80m/sMV Peak GR.mmHg E/A ratio0.82D MVAcm2 Aortic Valve Aortic ValveAortic Stenosis V11.00m/Jamal Mean GR.9mmHg V22.00m/Jamal Peak GR.17mmHg LVOT Diameter2.1 (1.8-2.4cm)Doppler AVA1.73cm2 AI P 1/2 Vekf1465.64ms Pulmonic Valve V21.00m/s Tricuspid Valve TR Velocity2.10m/s [id number] Conclusion Sinus rhythm. Concentric LVH with biatrial enlargement and mild aortic root enlargement. Mild aortic sclerosis. The mitral tricuspid and pulmonic or structurally normal. EF of 65-70% with normal RV function. Mild TR. No pericardial effusion masses or vegetations.
--- NOTE | 2024-08-18 18:23 | DVHPNRES ---
Progress Note Date Seen: Aug 18, 2024 Resident Creating Document: RAJESHSTARLA ALEMAN RESIDENT Medical Necessity Reason Pt with a Central, PICC or Fol: Yes Subjective Review of Systems Patient seen and examined at the bedside. Reports no pain in the suprapubic region at present s/p SP cath RANDALL resolving Objective vital signs Vital Sign Date Time Temp Pulse Resp B/P (MAP) Pulse Ox O2 Delivery O2 Flow Rate FiO2 08/18/24 13:00 98.4 72 20 96/88 (91) 97 98.4 08/18/24 08:00 Room Air* 0 21 Total Intake and Output 08/17/24 08/17/24 08/18/24 15:00 23:00 07:00 Intake Total 1975 ml Output Total 750 ml 1450 ml Balance -750 ml 525 ml medications Current Medications Medications Dose Ordered Sig/Melissa Route Start Time Stop Time Status Last Admin Dose Admin Acetaminophen/ Hydrocodone Bitart 1 tab Q4HP PRN PO 08/16/24 14:15 Ondansetron HCl 4 mg Q4HP PRN IV 08/16/24 14:15 08/17/24 12:11 4 MG Acetaminophen 650 mg Q6HP PRN PO 08/16/24 14:15 Tamsulosin HCl 0.4 mg DAILY PO 08/17/24 10:00 08/18/24 13:00 0.4 MG Ceftriaxone Sodium 50 ml @ 100 mls/hr Q24H IV 08/18/24 23:00 Sodium Chloride 1,000 ml @ 50 mls/hr Q20H IV 08/18/24 10:00 08/18/24 10:00 50 MLS/HR Examination Constitutional: Patient was alert and oriented to time, place and person and does not appear to be in any acute distress Gen - no pallor, no icterus, no cyanosis, no clubbing, no LAD, trace pedal edema bilaterally . Skin - Patients skin is warm and dry.. HEENT - normocephalic, atraumatic, dry mucous membranes. Neck - full ROM, no LAD, no JVD Pulmonary - B/L vesicular breath sounds. no crackles , no wheezing, no stridor. cardiovascular - normal S1,S2 heard. no murmurs heard. peripheral pulses normal radial 2+, pedal 2+. capillary refill normal <2 secs. GI - soft abdomen with minimal tenderness tenderness to palpation in the suprapubic area. no hepatospleenomegaly. Bowel sounds normoactive Neurological - Bilateral upper extremity strength 5/5, bilateral lower extremity strength 5/5, no facial droop, normal speech, no tremor, no sensory deficiets. : Patient has a suprapubic catheter draining yellow urine. laboratory and microbiology Laboratory Tests 08/18/24 06:58 Test 08/18/24 06:58 Range/Units Serum Glucose 101 74-106 mg/dL Problem List/Assessment/Plan Problem List/Assessment/Plan Assessment Acute urinary obstruction likely due to enlarged prostate Prostate cancer likely metastatic H/o bladder cancer s/p TURBT Acute renal injury likely due to obstructive uropathy Bilateral hydronephrosis Hyperkalemia - renal ultrasound shows bilateral hydronephrosis - PSA elevated >100 - CT abdomen pelvis without contrast showed trace pericardial effusion, trace right pleural effusion, small hiatal hernia, suprapubic catheter in place Plan - patient has a suprapubic catheter - urology on board plans to do cystoscopy with direct vision internal urethrotomy and Transurethral resection of prostate - nuclear medicine bone scan shows metastatic osteoblastic lesions - kidney function improving with serum creatinine going down - echo pending - urine culture pending - tamsulosin 0.4 mg p.o. daily - monitor BMP - patient on telemetry - Hem/onc consulted , awaiting further recommendations Goals of care discussed with the patient for over 23 minutes. Full code Plan discussed with Dr. Bauman Plan discussed with: Patient My Orders My Orders Orders - STARLA ANAND Procedure Category Date Status Time Urine Bacterial ALBAN 08/17/24 In Process Culture 16:17 Ceftriaxone 1gm/50ml PHA 08/18/24 In Process D5w (Rocephin) 23:00 Communication Order ORDERS 08/17/24 Transmitted 23:06 * Hematology/Oncology CONS 08/18/24 Transmitted Consult 11:39 Date of Service: Aug 18, 2024 Billing Provider: KORI BAUMAN MD Common Visit Codes: [id number] INP/OBS CARE(HIGH) STARLA ANAND Aug 18, 2024 18:23 KORI BAUMAN MD Aug 21, 2024 18:35
[2024-08-18] MEDS: cefTRIAXone 1GM/50ML D5W 50 ML IV SCH (22:04)
[2024-08-19] VITALS (8 sets, daily range): BP systolic 105–150; BP diastolic 52–74; PULSE 65–99; RESP 12–19; TEMP 98.2–100.6; O2SAT 93–98
[2024-08-19 06:56] LABS: Anion Gap 7 (5-15); Carbon Dioxide 25 mmol/L (20-31); Chloride 104 mmol/L (98-107); Potassium 4.3 mmol/L (3.5-5.1); Sodium 136 mmol/L (136-145)
[2024-08-19 06:58] LABS: Calcium 9.4 mg/dL (8.7-10.4)
[2024-08-19 07:02] LABS: Glucose 99 mg/dL (74-106)
[2024-08-19 07:03] LABS: BUN/Creatinine Ratio 16.7 (10.0-20.0); Blood Urea Nitrogen 25 mg/dL (9-23)
[2024-08-19 07:55] LABS: Basophils # (auto) 0 10 ^3/uL (0-0.2); Basophils % (auto) 0.3 % (0.0-2.0); Eosinophils # (auto) 0.4 10 ^3/uL (0-0.8); Eosinophils % (auto) 3.3 % (0.0-7.0); Hematocrit 35.7 % (41.0-53.0); Hemoglobin 11.6 g/dL (13.5-17.5); Lymphocytes # (auto) 0.9 10 ^3/uL (0.4-5.4); Lymphocytes % (auto) 8.3 % (10.0-50.0); Mean Corpuscular Hgb Conc. 32.5 g/dL (32.0-36.0); Mean Corpuscular Volume 86.1 fL (80.0-100.0); Monocytes # (auto) 0.9 10 ^3/uL (0-1.3); Monocytes % (auto) 8.5 % (0.0-12.0); Neutrophils # (auto) 8.7 10 ^3/uL (1.6-8.6); Neutrophils % (auto) 79.6 % (37.0-80.0); Platelet Count (auto) 251 10^3/uL (140-450); Red Blood Cells 4.14 10^6/uL (4.5-5.90); Red Cell Distribution Width 13.3 % (11.8-14.3)
[2024-08-19 09:15] LABS: INR 1.09 (0.9-1.15); Partial Thromboplastin Time 29.1 SEC (24.5-34.5); Prothrombin Time 11.5 sec (9.3-11.8)
--- NOTE | 2024-08-19 16:55 | DVHPNRES ---
Progress Note Date Seen: Aug 19, 2024 Resident Creating Document: CHENGSTARLA RESIDENT Medical Necessity Reason Pt with a Central, PICC or Fol: Yes Subjective Review of Systems Patient seen and examined at the bedside. Reports no pain in the suprapubic region at present s/p SP cath RANDALL resolving No acute complaints Objective vital signs Vital Sign Date Time Temp Pulse Resp B/P (MAP) Pulse Ox O2 Delivery O2 Flow Rate FiO2 08/19/24 13:00 99.0 82 19 120/71 (87) 97 99.0 08/19/24 08:00 Room Air* 0 21 Total Intake and Output 08/18/24 08/18/24 08/19/24 15:00 23:00 07:00 Intake Total 1100 ml 2150 ml Output Total 950 ml 2650 ml Balance 150 ml -500 ml medications Current Medications Medications Dose Ordered Sig/Melissa Route Start Time Stop Time Status Last Admin Dose Admin Acetaminophen/ Hydrocodone Bitart 1 tab Q4HP PRN PO 08/16/24 14:15 Ondansetron HCl 4 mg Q4HP PRN IV 08/16/24 14:15 08/17/24 12:11 4 MG Acetaminophen 650 mg Q6HP PRN PO 08/16/24 14:15 Tamsulosin HCl 0.4 mg DAILY PO 08/17/24 10:00 08/19/24 09:25 0.4 MG Ceftriaxone Sodium 50 ml @ 100 mls/hr Q24H IV 08/18/24 23:00 08/18/24 22:04 100 MLS/HR Sodium Chloride 1,000 ml @ 50 mls/hr Q20H IV 08/18/24 10:00 08/19/24 06:16 50 MLS/HR Examination Constitutional: Patient was alert and oriented to time, place and person and does not appear to be in any acute distress Gen - no pallor, no icterus, no cyanosis, no clubbing, no LAD, trace pedal edema bilaterally . Skin - Patients skin is warm and dry.. HEENT - normocephalic, atraumatic, dry mucous membranes. Neck - full ROM, no LAD, no JVD Pulmonary - B/L vesicular breath sounds. no crackles , no wheezing, no stridor. cardiovascular - normal S1,S2 heard. no murmurs heard. peripheral pulses normal radial 2+, pedal 2+. capillary refill normal <2 secs. GI - soft abdomen with minimal tenderness tenderness to palpation in the suprapubic area. no hepatospleenomegaly. Bowel sounds normoactive Neurological - Bilateral upper extremity strength 5/5, bilateral lower extremity strength 5/5, no facial droop, normal speech, no tremor, no sensory deficiets. : Patient has a suprapubic catheter draining yellow urine. laboratory and microbiology Laboratory Tests 08/19/24 05:40 Test 08/19/24 05:40 Range/Units Serum Glucose 99 74-106 mg/dL Microbiology Date/Time Source Procedure Growth Status 08/17/24 23:59 Urine - [place] Urine Culture - Preliminary Resulted Problem List/Assessment/Plan Problem List/Assessment/Plan Assessment Acute urinary obstruction likely due to enlarged prostate Prostate cancer likely metastatic H/o bladder cancer s/p TURBT Acute renal injury likely due to obstructive uropathy Bilateral hydronephrosis Hyperkalemia - renal ultrasound shows bilateral hydronephrosis - PSA elevated >100 - CT abdomen pelvis without contrast showed trace pericardial effusion, trace right pleural effusion, small hiatal hernia, suprapubic catheter in place Plan - patient has a suprapubic catheter - urology on board plans to do cystoscopy with direct vision internal urethrotomy and Transurethral resection of prostate - nuclear medicine bone scan shows metastatic osteoblastic lesions - kidney function improving with serum creatinine going down - echo pending - urine culture pending - tamsulosin 0.4 mg p.o. daily - monitor BMP - patient on telemetry - Hem/onc consulted , awaiting further recommendations Madrigal-CT to rule out metastasis elsewhere due to RANDALL Urology take the patient for cystoscopy tomorrow morning. Goals of care discussed with the patient for over 19 minutes. Full code Plan discussed with Dr. Sams Plan discussed with: Patient My Orders My Orders Orders - STARLA ANAND Procedure Category Date Status Time Blood Culture ALBAN 08/19/24 Uncollected 16:54 Date of Service: Aug 19, 2024 Billing Provider: KORI SAMS MD Common Visit Codes: [id number] INP/OBS CARE(HIGH) STARLA ANAND RESIDENT Aug 19, 2024 16:55 KORI SAMS MD Aug 21, 2024 18:36
--- NOTE | 2024-08-19 19:07 | DVHPN2 ---
Progress Note Date Seen: Aug 19, 2024 Medical Necessity Reason Pt with a Central, PICC or Fol: Yes Subjective Patient reports: No new complaints, Feels better Review of Systems: Deferred Objective vital signs Vital Sign Date Time Temp Pulse Resp B/P (MAP) Pulse Ox O2 Delivery O2 Flow Rate FiO2 08/19/24 17:00 100.3 91 18 131/74 (93) 94 100.3 08/19/24 08:00 Room Air* 0 21 Total Intake and Output 08/18/24 08/18/24 08/19/24 15:00 23:00 07:00 Intake Total 1100 ml 2150 ml Output Total 950 ml 2650 ml Balance 150 ml -500 ml medications Current Medications Medications Dose Ordered Sig/Melissa Route Start Time Stop Time Status Last Admin Dose Admin Acetaminophen/ Hydrocodone Bitart 1 tab Q4HP PRN PO 08/16/24 14:15 Ondansetron HCl 4 mg Q4HP PRN IV 08/16/24 14:15 08/17/24 12:11 4 MG Acetaminophen 650 mg Q6HP PRN PO 08/16/24 14:15 Tamsulosin HCl 0.4 mg DAILY PO 08/17/24 10:00 08/19/24 09:25 0.4 MG Ceftriaxone Sodium 50 ml @ 100 mls/hr Q24H IV 08/18/24 23:00 08/18/24 22:04 100 MLS/HR Sodium Chloride 1,000 ml @ 50 mls/hr Q20H IV 08/18/24 10:00 08/19/24 06:16 50 MLS/HR Examination: GENERAL:Normal, HEENT:Normal, NECK:Normal, LUNGS:Normal, CVS:Normal, ABDOMEN:Normal, MSK:Normal, SKIN:Normal, NEURO:Normal, :Abnormal laboratory and microbiology Laboratory Tests 08/19/24 05:40 Test 08/19/24 05:40 Range/Units Serum Glucose 99 74-106 mg/dL Microbiology Date/Time Source Procedure Growth Status 08/17/24 23:59 Urine - [place] Urine Culture - Preliminary Resulted Problem List/Assessment/Plan Problem List/Assessment/Plan Acute kidney injury secondary to obstructive uropathy Bilateral hydronephrosis mild Hyperkalemia now improved Metabolic acidosis Prostate cancer Noncompliance Recommendations Status post suprapubic catheter by Urology Plan for cystoscopy and TURP noted dc ivf gentle lasix Renal function better no indication for dialysis now We will follow closely Plan discussed with: Patient JORGE RENNER MD Aug 19, 2024 19:07
[2024-08-19] MEDS: FUROSEMIDE 40 MG/4 ML VIAL IV ONE (20:28)
[2024-08-20] VITALS (10 sets, daily range): BP systolic 103–127; BP diastolic 57–70; PULSE 72–89; RESP 12–20; TEMP 98.2–100.7; O2SAT 93–100
--- NOTE | 2024-08-20 05:27 | DVH ---
CHEST RADIOGRAPH Indication: steff Technique: Single frontal view of the chest was obtained Comparison: XY CHEST XRAY 1 VIEW on DOS: 09/16/23 IMPRESSION: The heart appears normal in size. There are subsegmental atelectasis in the left lung base. The lung s appear clear without focal airspace opacity, effusion, or pneumothorax.
[2024-08-20 06:50] LABS: Basophils # (auto) 0 10 ^3/uL (0-0.2); Basophils % (auto) 0.5 % (0.0-2.0); Eosinophils # (auto) 0.2 10 ^3/uL (0-0.8); Eosinophils % (auto) 2.9 % (0.0-7.0); Hematocrit 33.8 % (41.0-53.0); Hemoglobin 11.2 g/dL (13.5-17.5); Lymphocytes # (auto) 0.7 10 ^3/uL (0.4-5.4); Lymphocytes % (auto) 9.6 % (10.0-50.0); Mean Corpuscular Hemoglobin 27.9 pg (28.0-32.0); Mean Corpuscular Hgb Conc. 33.1 g/dL (32.0-36.0); Mean Corpuscular Volume 84.4 fL (80.0-100.0); Monocytes # (auto) 0.9 10 ^3/uL (0-1.3); Monocytes % (auto) 12.8 % (0.0-12.0); Neutrophils # (auto) 5.3 10 ^3/uL (1.6-8.6); Neutrophils % (auto) 74.2 % (37.0-80.0); Nucleated Red Blood Cells % 0.1 %; Platelet Count (auto) 222 10^3/uL (140-450); Red Cell Distribution Width 13.4 % (11.8-14.3); White Blood Cell 7.2 10^3/uL (4.4-10.8)
[2024-08-20 07:06] LABS: Calcium 9.1 mg/dL (8.7-10.4); Chloride 99 mmol/L (98-107); Potassium 4.4 mmol/L (3.5-5.1)
[2024-08-20 07:07] LABS: Anion Gap 5 (5-15); Carbon Dioxide 27 mmol/L (20-31)
[2024-08-20 07:12] LABS: BUN/Creatinine Ratio 15.2 (10.0-20.0); Blood Urea Nitrogen 21 mg/dL (9-23); Glucose 90 mg/dL (74-106)
[2024-08-20 07:16] LABS: Sodium 131 mmol/L (136-145)
[2024-08-20] MEDS ORDERED: fentaNYL CITRATE 5 ML ONE (07:44)
[2024-08-20] MEDS ORDERED: MIDAZOLAM HCL 2MG/2ML 2ml VIAL (1mg/ml) ONE (07:44)
--- NOTE | 2024-08-20 08:39 | POSTOP ---
Post-Operative Note Post-Operative Note Preop Diagnosis Metastatic prostate cancer Urinary retention Prostatic obstruction Postop Diagnosis: Same Operation performed Trans urethral resection of the prostate gland (channel TURP) Specimen Prostate tissue Anesthesia: General Anesthesiologist: Shweta Surgeon Dejan Alvarado Date 08/20/24 Time 08:38 DEJAN ALVARADO MD Aug 20, 2024 08:39
[2024-08-20] MEDS ORDERED: HYDROmorphone HCL 2 MG/ML VL/or syr IV PRN (08:45)
[2024-08-20] MEDS: ONDANSETRON HCL 4 MG/2 ML VIAL IV ONE (08:45)
[2024-08-20] MEDS: HYDROmorphone HCL 2 MG/ML VL/or syr IV PRN (09:15)
--- NOTE | 2024-08-20 09:27 | DVHPN2 ---
Assessment/Plan Assessment/Plan progress note 64 M with hx of prostate cancer admitted for hyperkalemia, retention and mets,requiring suprapubic cath seen by me today during rounds. s/p turp today, pending hemeonc eval, likely need lupron +- rad onc physical exam alert oriented 3 clear breath sounds s1 s2 rrr abdomen midly tender no le edema labs ekg imaging reviewed assessment and plan acute urinary obstruction 2/2 prostate cancer prostate cancer with mets bladder cancer s/p TURBT RANDALL obstructive uropathy resolved hyperk from same c/w current management pending hemonc eval likely need lupron =- rad onc full code diet reg dvt ppx hold for procedure Plan discussed with: Patient Date of Service: Aug 20, 2024 Billing Provider: KORI BAUMAN MD Common Visit Codes: [id number] INP/OBS CARE(HIGH) KORI BAUMAN MD Aug 20, 2024 09:27
[2024-08-20] MEDS: HYDROmorphone HCL 2 MG/ML VL/or syr ONE (09:31)
[2024-08-20] MEDS ORDERED: LIDOCAINE 2% (LOCAL ANESTH.) PF 5ml SDV ONE (09:42)
[2024-08-20] MEDS ORDERED: ONDANSETRON HCL 4 MG/2 ML VIAL ONE (09:42)
[2024-08-20] MEDS ORDERED: GLYCOPYRROLATE 0.2 MG/ML 1ML VIAL ONE (09:43)
[2024-08-20] MEDS ORDERED: ROCURONIUM 10MG/ML 10ML VIAL IV ONE (09:43)
[2024-08-20] MEDS ORDERED: NEOSTIGMINE 1 MG/ML INJ (10mg/10ML VIAL) ONE (09:43)
[2024-08-20] MEDS ORDERED: PROPOFOL 10 MG/ML 20 ML IV ONE (09:43)
--- NOTE | 2024-08-20 09:53 | DVHPN2 ---
Progress Note Date Seen: Aug 20, 2024 Medical Necessity Reason Pt with a Central, PICC or Fol: Yes Subjective Patient reports: No new complaints Review of Systems: HEENT:Normal, CVS:Normal, RESPIRATORY:Normal, GI:Normal, :Abnormal, MSK:Normal, NEURO:Normal Objective vital signs Vital Sign Date Time Temp Pulse Resp B/P (MAP) Pulse Ox O2 Delivery O2 Flow Rate FiO2 08/20/24 09:25 62 14 117/63 (81) 100 08/20/24 08:55 Nasal Cannula 2.0 08/20/24 05:00 100.7 100.7 08/19/24 20:00 21 Total Intake and Output 08/19/24 08/19/24 08/20/24 14:59 22:59 06:59 Intake Total 300 ml 500 ml Output Total 650 ml 550 ml Balance -350 ml -50 ml medications Current Medications Medications Dose Ordered Sig/Melissa Route Start Time Stop Time Status Last Admin Dose Admin Acetaminophen/ Hydrocodone Bitart 1 tab Q4HP PRN PO 08/16/24 14:15 Ondansetron HCl 4 mg Q4HP PRN IV 08/16/24 14:15 08/17/24 12:11 4 MG Acetaminophen 650 mg Q6HP PRN PO 08/16/24 14:15 Tamsulosin HCl 0.4 mg DAILY PO 08/17/24 10:00 08/19/24 09:25 0.4 MG Ceftriaxone Sodium 50 ml @ 100 mls/hr Q24H IV 08/18/24 23:00 08/19/24 22:08 100 MLS/HR Furosemide 40 mg DAILY IV 08/20/24 10:00 Examination: GENERAL:Normal, HEENT:Normal, NECK:Normal, LUNGS:Normal, CVS:Normal, ABDOMEN:Normal, MSK:Normal, SKIN:Normal, NEURO:Normal, :Abnormal laboratory and microbiology Laboratory Tests 08/20/24 05:20 Test 08/20/24 05:20 Range/Units Serum Glucose 90 74-106 mg/dL Microbiology Date/Time Source Procedure Growth Status 08/17/24 23:59 Urine - [place] Urine Culture - Preliminary Resulted Problem List/Assessment/Plan Problem List/Assessment/Plan Acute kidney injury secondary to obstructive uropathy Bilateral hydronephrosis mild Hyperkalemia now improved Metabolic acidosis Prostate cancer metastatic Noncompliance Recommendations s/p TURP Status post suprapubic catheter by Urology dc ivf gentle lasix Renal function better no indication for dialysis now We will follow closely urology f/u hem onc eval pending Plan discussed with: Patient My Orders My Orders Orders - JORGE RENNER MD Procedure Category Date Status Time Furosemide Injection PHA 08/20/24 In Process (Lasix Injection) 10:00 Chest Portable XY 08/19/24 Resulted 19:08 JORGE RENNER MD Aug 20, 2024 09:53
[2024-08-20] MEDS: FUROSEMIDE 40 MG/4 ML VIAL IV SCH (09:59)
[2024-08-20] MEDS ORDERED: PHENYLEPHRINE HCL 10 MG/ML VL ONE (10:14)
[2024-08-20] MEDS ORDERED: ePHEDrine SULFATE 50 MG/ML AMP ONE (10:14)
[2024-08-20] MEDS: HYDROcodone-ACET 5/325MG TAB PO PRN (12:54)
[2024-08-21] VITALS (10 sets, daily range): BP systolic 87–115; BP diastolic 50–70; PULSE 68–93; RESP 18–22; TEMP 97.7–98.8; O2SAT 93–99
[2024-08-21 06:59] LABS: Basophils # (auto) 0 10 ^3/uL (0-0.2); Basophils % (auto) 0.7 % (0.0-2.0); Eosinophils # (auto) 0.3 10 ^3/uL (0-0.8); Eosinophils % (auto) 4.5 % (0.0-7.0); Hematocrit 32.4 % (41.0-53.0); Hemoglobin 10.8 g/dL (13.5-17.5); Lymphocytes # (auto) 0.4 10 ^3/uL (0.4-5.4); Mean Corpuscular Hemoglobin 28.1 pg (28.0-32.0); Mean Corpuscular Hgb Conc. 33.3 g/dL (32.0-36.0); Mean Corpuscular Volume 84.3 fL (80.0-100.0); Monocytes # (auto) 0.7 10 ^3/uL (0-1.3); Monocytes % (auto) 10.8 % (0.0-12.0); Neutrophils # (auto) 4.8 10 ^3/uL (1.6-8.6); Nucleated Red Blood Cells % 0.1 %; Platelet Count (auto) 193 10^3/uL (140-450); Red Blood Cells 3.84 10^6/uL (4.5-5.90); White Blood Cell 6.3 10^3/uL (4.4-10.8)
[2024-08-21 07:10] LABS: Anion Gap 5 (5-15); Carbon Dioxide 28 mmol/L (20-31); Chloride 99 mmol/L (98-107); Potassium 4.6 mmol/L (3.5-5.1)
[2024-08-21 07:14] LABS: Calcium 8.7 mg/dL (8.7-10.4); Sodium 132 mmol/L (136-145)
[2024-08-21 07:16] LABS: BUN/Creatinine Ratio 17.8 (10.0-20.0); Blood Urea Nitrogen 21 mg/dL (9-23)
[2024-08-21 07:19] LABS: Glucose 112 mg/dL (74-106)
--- NOTE | 2024-08-21 09:02 | DVHPN2 ---
Progress Note Date Seen: Aug 21, 2024 Medical Necessity Reason Pt with a Central, PICC or Fol: Yes Subjective Patient reports: No new complaints Objective vital signs Vital Sign Date Time Temp Pulse Resp B/P (MAP) Pulse Ox O2 Delivery O2 Flow Rate FiO2 08/21/24 08:00 69 20 93 Room Air* 0 21 08/21/24 05:00 98.7 115/70 (85) 98.7 Total Intake and Output 08/20/24 08/20/24 08/21/24 15:00 23:00 07:00 Intake Total 200 ml Output Total 7300 ml 06229 ml 7600 ml Balance -7300 ml -35981 ml -7400 ml medications Current Medications Medications Dose Ordered Sig/Melissa Route Start Time Stop Time Status Last Admin Dose Admin Acetaminophen/ Hydrocodone Bitart 1 tab Q4HP PRN PO 08/16/24 14:15 08/21/24 05:03 1 TAB Ondansetron HCl 4 mg Q4HP PRN IV 08/16/24 14:15 08/17/24 12:11 4 MG Acetaminophen 650 mg Q6HP PRN PO 08/16/24 14:15 Tamsulosin HCl 0.4 mg DAILY PO 08/17/24 10:00 08/20/24 09:59 0.4 MG Ceftriaxone Sodium 50 ml @ 100 mls/hr Q24H IV 08/18/24 23:00 08/20/24 22:45 100 MLS/HR Furosemide 40 mg DAILY IV 08/20/24 10:00 08/20/24 09:59 40 MG Examination: GENERAL:Normal, HEENT:Normal, NECK:Normal, LUNGS:Normal, CVS:Normal, ABDOMEN:Normal, MSK:Normal, SKIN:Normal, NEURO:Normal, :Abnormal laboratory and microbiology Laboratory Tests 08/21/24 05:58 Test 08/21/24 05:58 Range/Units Serum Glucose 112 H 74-106 mg/dL Microbiology Date/Time Source Procedure Growth Status 08/19/24 19:16 Blood Blood Culture - Preliminary NO GROWTH AFTER 24 HOURS OF INCUBATION. Resulted 08/17/24 23:59 Urine - [place] Urine Culture - Final Complete Problem List/Assessment/Plan Problem List/Assessment/Plan Acute kidney injury secondary to obstructive uropathy Bilateral hydronephrosis --s/p supra pubic cath Hyperkalemia now improved Metabolic acidosis Prostate cancer metastatic Noncompliance Recommendations s/p TURP,hold lasix Status post suprapubic catheter by Urology Renal function better We will follow closely urology f/u hem onc eval pending Plan discussed with: Patient JORGE RENNER MD Aug 21, 2024 09:02
[2024-08-21] MEDS: POLYETHYLENE GLYCOL 17 GM PWDR PO ONE (12:31)
--- NOTE | 2024-08-21 16:19 | DVHPNRES ---
Progress Note Date Seen: Aug 21, 2024 Resident Creating Document: CHENGSTARLA RESIDENT Medical Necessity Reason Pt with a Central, PICC or Fol: Yes Subjective Review of Systems Patient was examined with the bedside Status post TURP, on continuous bladder irrigation draining blood-tinged urine in the De La Cruz's bag Patient denied pain in the suprapubic region Reported feeling constipated for which MiraLax was given Patient is pending Heme-Onc evaluation Objective vital signs Vital Sign Date Time Temp Pulse Resp B/P (MAP) Pulse Ox O2 Delivery O2 Flow Rate FiO2 08/21/24 13:00 98.6 77 20 108/59 (75) 98 98.6 08/21/24 08:00 Room Air* 0 21 Total Intake and Output 08/20/24 08/20/24 08/21/24 15:00 23:00 07:00 Intake Total 200 ml Output Total 7300 ml 98789 ml 7600 ml Balance -7300 ml -96591 ml -7400 ml medications Current Medications Medications Dose Ordered Sig/Melissa Route Start Time Stop Time Status Last Admin Dose Admin Acetaminophen/ Hydrocodone Bitart 1 tab Q4HP PRN PO 08/16/24 14:15 08/21/24 05:03 1 TAB Ondansetron HCl 4 mg Q4HP PRN IV 08/16/24 14:15 08/17/24 12:11 4 MG Acetaminophen 650 mg Q6HP PRN PO 08/16/24 14:15 Tamsulosin HCl 0.4 mg DAILY PO 08/17/24 10:00 08/21/24 09:11 0.4 MG Ceftriaxone Sodium 50 ml @ 100 mls/hr Q24H IV 08/18/24 23:00 08/20/24 22:45 100 MLS/HR Furosemide 40 mg DAILY IV 08/20/24 10:00 08/21/24 09:12 40 MG Examination Constitutional: Patient was alert and oriented to time, place and person and does not appear to be in any acute distress Gen - no pallor, no icterus, no cyanosis, no clubbing, no LAD, trace pedal edema bilaterally . Skin - Patients skin is warm and dry.. HEENT - normocephalic, atraumatic, dry mucous membranes. Neck - full ROM, no LAD, no JVD Pulmonary - B/L vesicular breath sounds. no crackles , no wheezing, no stridor. cardiovascular - normal S1,S2 heard. no murmurs heard. peripheral pulses normal radial 2+, pedal 2+. capillary refill normal <2 secs. GI - soft abdomen with minimal tenderness tenderness to palpation in the suprapubic area. no hepatospleenomegaly. Bowel sounds normoactive Neurological - Bilateral upper extremity strength 5/5, bilateral lower extremity strength 5/5, no facial droop, normal speech, no tremor, no sensory deficiets. : On continuous bladder irrigation laboratory and microbiology Laboratory Tests 08/21/24 05:58 Test 08/21/24 05:58 Range/Units Serum Glucose 112 H 74-106 mg/dL Microbiology Date/Time Source Procedure Growth Status 08/19/24 19:16 Blood Blood Culture - Preliminary NO GROWTH AFTER 24 HOURS OF INCUBATION. Resulted 08/17/24 23:59 Urine - [place] Urine Culture - Final Complete Problem List/Assessment/Plan Problem List/Assessment/Plan Assessment Acute urinary obstruction likely due to enlarged prostate Prostate cancer likely metastatic H/o bladder cancer s/p TURBT Acute renal injury likely due to obstructive uropathy Bilateral hydronephrosis Hyperkalemia - renal ultrasound shows bilateral hydronephrosis - PSA elevated >100 - CT abdomen pelvis without contrast showed trace pericardial effusion, trace right pleural effusion, small hiatal hernia, suprapubic catheter in place Plan - patient has a suprapubic catheter - urology on board plans to do cystoscopy with direct vision internal urethrotomy and Transurethral resection of prostate - 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 daily - monitor BMP - patient on telemetry - Hem/onc consulted , awaiting further recommendations Patient was status post TURP, on continuous bladder irrigation. Pending Heme-Onc evaluation Dr. Oneil for metastatic prostate cancer Goals of care discussed with the patient for over 19 minutes. Full code Plan discussed with Dr. Sams Plan discussed with: Patient Date of Service: Aug 21, 2024 Billing Provider: KORI SAMS MD Common Visit Codes: [id number] INP/OBS CARE(HIGH) STARLA ANAND RESIDENT Aug 21, 2024 16:18 KORI SAMS MD Aug 21, 2024 18:36
--- NOTE | 2024-08-21 20:59 | DVHPN2 ---
Progress Note - Dictate Date Seen: Aug 21, 2024 Medical Necessity Reason Pt with a Central, PICC or Fol: Yes The following are medically ne: De [place] Cruz Catheter Medical Necessity Reason s/p channel TURP De [place] catheter Subjective No pain reported. Tolerating De La Cruz vital signs Vital Sign Date Time Temp Pulse Resp B/P (MAP) Pulse Ox O2 Delivery O2 Flow Rate FiO2 08/21/24 17:00 98.7 87 20 102/58 (73) 96 98.7 08/21/24 08:00 Room Air* 0 21 Total Intake and Output 08/20/24 08/20/24 08/21/24 15:00 23:00 07:00 Intake Total 200 ml Output Total 7300 ml 97141 ml 7600 ml Balance -7300 ml -66922 ml -7400 ml medications Current Medications Medications Dose Ordered Sig/Melissa Route Start Time Stop Time Status Last Admin Dose Admin Acetaminophen/ Hydrocodone Bitart 1 tab Q4HP PRN PO 08/16/24 14:15 08/21/24 05:03 1 TAB Ondansetron HCl 4 mg Q4HP PRN IV 08/16/24 14:15 08/17/24 12:11 4 MG Acetaminophen 650 mg Q6HP PRN PO 08/16/24 14:15 Tamsulosin HCl 0.4 mg DAILY PO 08/17/24 10:00 08/21/24 09:11 0.4 MG Ceftriaxone Sodium 50 ml @ 100 mls/hr Q24H IV 08/18/24 23:00 08/20/24 22:45 100 MLS/HR Furosemide 40 mg DAILY IV 08/20/24 10:00 08/21/24 09:12 40 MG objective De [place] Cruz in place with CBI stopped. Urine clear laboratory and microbiology Laboratory Tests 08/21/24 05:58 Test 08/21/24 05:58 Range/Units Serum Glucose 112 H 74-106 mg/dL Problem List Creatinine has decreased to 5.09-->2.42 --> 1.18 Assessment/Plan s/p TURP POD#1 Management for his prostate cancer with hormonal therapy TBA- Orgovyx 120 mg po daily to start JAVIER Plan discussed with: Patient, Other DEJAN ALVARADO MD Aug 21, 2024 20:59
[2024-08-22] VITALS (8 sets, daily range): BP systolic 89–100; BP diastolic 43–54; PULSE 61–74; RESP 17–20; TEMP 97.6–98.5; O2SAT 95–98
[2024-08-22 06:51] LABS: Basophils # (auto) 0 10 ^3/uL (0-0.2); Basophils % (auto) 0.7 % (0.0-2.0); Eosinophils # (auto) 0.2 10 ^3/uL (0-0.8); Eosinophils % (auto) 4.3 % (0.0-7.0); Hematocrit 31.6 % (41.0-53.0); Hemoglobin 10.5 g/dL (13.5-17.5); Lymphocytes # (auto) 1.1 10 ^3/uL (0.4-5.4); Lymphocytes % (auto) 22.9 % (10.0-50.0); Mean Corpuscular Hgb Conc. 33.3 g/dL (32.0-36.0); Mean Corpuscular Volume 84.1 fL (80.0-100.0); Monocytes # (auto) 0.8 10 ^3/uL (0-1.3); Monocytes % (auto) 15.9 % (0.0-12.0); Neutrophils # (auto) 2.8 10 ^3/uL (1.6-8.6); Neutrophils % (auto) 56.2 % (37.0-80.0); Nucleated Red Blood Cells % 0.1 %; Platelet Count (auto) 200 10^3/uL (140-450); Red Blood Cells 3.75 10^6/uL (4.5-5.90); Red Cell Distribution Width 13.1 % (11.8-14.3)
[2024-08-22 06:56] LABS: Potassium 4.5 mmol/L (3.5-5.1)
[2024-08-22 06:57] LABS: Anion Gap 6 (5-15); Carbon Dioxide 29 mmol/L (20-31)
[2024-08-22 07:02] LABS: BUN/Creatinine Ratio 17.2 (10.0-20.0); Blood Urea Nitrogen 23 mg/dL (9-23); Glucose 87 mg/dL (74-106)
[2024-08-22 07:03] LABS: Calcium 8.7 mg/dL (8.7-10.4); Chloride 97 mmol/L (98-107); Sodium 132 mmol/L (136-145)
[2024-08-22] MEDS ORDERED: RELU120T PO (10:01)
--- NOTE | 2024-08-22 11:47 | DVHPN2 ---
Progress Note Date Seen: Aug 22, 2024 Medical Necessity Reason Pt with a Central, PICC or Fol: Yes The following are medically ne: [place] Catheter Subjective Patient reports: No new complaints Other Systems: Patient seen and examined by myself today in follow-up Objective vital signs Vital Sign Date Time Temp Pulse Resp B/P (MAP) Pulse Ox O2 Delivery O2 Flow Rate FiO2 08/22/24 10:00 84/47 08/22/24 09:00 98.5 67 18 98 98.5 08/22/24 08:00 Room Air* 0 21 Total Intake and Output 08/21/24 08/21/24 08/22/24 14:59 22:59 06:59 Intake Total 1420 ml 700 ml Output Total 3000 ml 1800 ml Balance -1580 ml -1100 ml medications Current Medications Medications Dose Ordered Sig/Melissa Route Start Time Stop Time Status Last Admin Dose Admin Acetaminophen/ Hydrocodone Bitart 1 tab Q4HP PRN PO 08/16/24 14:15 08/22/24 00:54 1 TAB Ondansetron HCl 4 mg Q4HP PRN IV 08/16/24 14:15 08/17/24 12:11 4 MG Acetaminophen 650 mg Q6HP PRN PO 08/16/24 14:15 Tamsulosin HCl 0.4 mg DAILY PO 08/17/24 10:00 08/22/24 09:23 0.4 MG Ceftriaxone Sodium 50 ml @ 100 mls/hr Q24H IV 08/18/24 23:00 08/21/24 22:26 100 MLS/HR Furosemide 40 mg DAILY IV 08/20/24 10:00 08/21/24 09:12 40 MG Examination: LUNGS:Normal, CVS:Normal, MSK:Normal laboratory and microbiology Laboratory Tests 08/22/24 06:17 Test 08/22/24 06:17 Range/Units Serum Glucose 87 74-106 mg/dL Microbiology Date/Time Source Procedure Growth Status 08/19/24 19:16 Blood Blood Culture - Preliminary NO GROWTH AFTER 48 HOURS OF INCUBATION. Resulted 08/17/24 23:59 Urine - [place] Urine Culture - Final Complete Problem List/Assessment/Plan Problem List/Assessment/Plan Acute kidney injury superimposed Chronic Kidney Disease secondary obstructive uropathy Bilateral hydronephrosis --s/p supra pubic cath Hyperkalemia, improved Metabolic acidosis Prostate cancer metastatic Hyponatremia due to dehydration Anemia of Chronic Kidney Disease Recommendations Kidney function is improving Increased urine output Strict I&Os DC furosemide Urology consult We will continue to follow up Plan discussed with: Patient My Orders My Orders Orders - ROBERTO CARLOS RO MD Procedure Category Date Status Time Urine Sodium LAB 08/22/24 Logged 09:22 Urine LAB 08/22/24 Logged Protein/Creatinine ROBERTO CARLOS RO MD Aug 22, 2024 11:47
[2024-08-22] MEDS: SODIUM CHLORIDE 0.9% 500 ML IV ONE ×2 (15:56→17:59)
--- NOTE | 2024-08-22 17:15 | DVHPNRES ---
Progress Note Date Seen: Aug 22, 2024 Resident Creating Document: MICHEL CHARLTON RESIDENT Medical Necessity Reason Pt with a Central, PICC or Fol: Yes The following are medically ne: Christina Catheter Subjective Review of Systems Iraj Vasquez is a 64 year old male patient who presents to the ER following abnormal lab results noted by his PCP (creatinine 12.99 and hyper). Patient reports that he had a christina's catheter for almost a year till he got the TURBT in august 2023. He was able to urinate normally since the procedure until 3 weeks ago when he started to have symptoms of overflow incontinence, weak urinary stream and lower abdominal pain in the the suprapubic. Suprapubic catheter was placed after multiple failed attempts of Christina catheter placement, obtaining a 1100 ml of urine. Past medical history: Bladder CA s/p TURBT, prostate CA with no follow up (patient was supposed to receive BCG lavage), prostatomegaly, noncompliant Past surgical history: TURBT 2023, cholecystectomy Family history: Noncontributory Social history: patient denies smoking, alcohol, drug use Allergies: Penicillin (has tolerated ceftriaxone and cefepime) Home medications: tamsulosin 0.4mg, amlodipine 5mg Patient seen and examined at bedside. Currently has no new complaints. Has been presented asymptomatic hypotension, requiring IV boluses of normal saline Objective vital signs Vital Sign Date Time Temp Pulse Resp B/P (MAP) Pulse Ox O2 Delivery O2 Flow Rate FiO2 08/22/24 13:00 97.6 70 18 89/46 (60) 96 97.6 08/22/24 08:00 Room Air* 0 21 Total Intake and Output 08/21/24 08/21/24 08/22/24 15:00 23:00 07:00 Intake Total 1470 ml 650 ml Output Total 3000 ml 1800 ml Balance -1530 ml -1150 ml medications Current Medications Medications Dose Ordered Sig/Melissa Route Start Time Stop Time Status Last Admin Dose Admin Acetaminophen/ Hydrocodone Bitart 1 tab Q4HP PRN PO 08/16/24 14:15 08/22/24 17:11 1 TAB Ondansetron HCl 4 mg Q4HP PRN IV 08/16/24 14:15 08/17/24 12:11 4 MG Acetaminophen 650 mg Q6HP PRN PO 08/16/24 14:15 Tamsulosin HCl 0.4 mg DAILY PO 08/17/24 10:00 08/22/24 09:23 0.4 MG Ceftriaxone Sodium 50 ml @ 100 mls/hr Q24H IV 08/18/24 23:00 08/21/24 22:26 100 MLS/HR Examination Patient lying in bed, in no acute distress General: Lucid, afebrile, mucosae are moist Cardiovascular: Normal S1 and S2. No murmurs, gallops or rubs Respiratory: Normal ventilation mechanics. Clear lung sounds on auscultation Abdomen: Soft, nontender, no organomegaly, normal bowel sounds MSK/skin: Mobilizes 4 limbs. Skin is dry and warm : Three way Christina catheter placed with CBI (was discontinued today), suprapubic surgical site with no pus or no collections. Neurological: Oriented in 3 spheres. No motor no sensitive deficits. Pupils are isocoric and reactive laboratory and microbiology Laboratory Tests 08/22/24 06:17 Test 08/22/24 06:17 Range/Units Serum Glucose 87 74-106 mg/dL Microbiology Date/Time Source Procedure Growth Status 08/19/24 19:16 Blood Blood Culture - Preliminary NO GROWTH AFTER 48 HOURS OF INCUBATION. Resulted 08/17/24 23:59 Urine - Christina Port Urine Culture - Final Complete Problem List/Assessment/Plan Problem List/Assessment/Plan # Acute urinary obstruction likely due to enlarged prostate - status post suprapubic catheter, currently status post TURP Suprapubic catheter placed in the ER obtaining 1100 mL of clear urine. Currently on tamsulosin Urine culture negative Urology on board: Currently status post TURP, placed three way Christina catheter which required CBI for 24 hours, currently discontinued. Completed CT abdomen pelvis without contrast showed trace pericardial effusion, trace right pleural effusion, small hiatal hernia, suprapubic catheter in place # Prostate cancer likely metastatic - status postop Per urology specialist, [facility] seven. Patient noncompliant with follow-up with urology specialist. PSA elevated (above 100) Completed TURP Completed bone scan which showed metastatic lesions (multifocal osteoblastic metastasis and left sacral ala, left superior corner of L4 and manubrium) Urology on board: Ordered Orgovyx to start as outpatient for initially 30 days. Has to follow up as outpatient Heme-Onc consulted # Bladder cancer s/p TURBT Patient supposedly to follow up as outpatient for BCG irrigation, was never completed due to noncompliance # Acute renal injury likely due to obstructive uropathy with bilateral hydronephrosis Completed renal ultrasound which showed bilateral hydronephrosis Responded to treatment of postobstructive uropathy. Did not require dialysis. Ruled out prerenal causes of RANDALL. Completed echocardiogram which showed concentric LVH, LVEF 65-70%, biatrial enlargement and mild aortic root enlargement # Hyperkalemia Responded to treatment of postobstructive uropathy. Did not require dialysis. # Asymptomatic hypotension Patient presented hypotension which response to IV fluids. Likely due to anesthesia during operation versus polyuric stage after resolution of RANDALL. Goals of care discussed with the patient for over 19 minutes: Full code Plan discussed with Dr. Sams, patient and nurses: Patient presents asymptomatic hypotension which response to IV fluids. Have discontinued diuretics and held tamsulosin at this point (patient has Christina catheter). We will monitor blood pressure for 24 hours. Have discontinued the CBI. Awaiting Orgovyx treatment to be started as outpatient (ordered by urologist). Pending oncology evaluation, most likely we will follow as outpatient. I have explained importance of compliance to patient. Plan discussed with: Patient My Orders My Orders Orders - MICHEL CHARLTON Procedure Category Date Status Time Mechanical Soft Diet DIET 08/22/24 Verified Dinner Lactulose Oral PHA 08/22/24 Verified 17:15 Lactulose Oral PHA 08/23/24 Verified 10:00 Date of Service: Aug 22, 2024 Billing Provider: KORI SAMS MD Common Visit Codes: [id number] INP/OBS CARE(HIGH) MICHEL CHARLTON Aug 22, 2024 17:15 KORI SAMS MD Aug 24, 2024 15:33
[2024-08-22] MEDS: LACTULOSE 20Gm/30ML SOLN PO ONE (17:58)
[2024-08-22] MEDS: SODIUM CHLORIDE 0.9% 1,000 ML IV SCH (18:48)
[2024-08-23 01:00] VITALS: BP 90/60; PULSE 71; RESP 17; TEMP 97.8; O2SAT 93
[2024-08-23 05:00] VITALS: BP 98/62; PULSE 72; RESP 18; TEMP 97.7; O2SAT 96
[2024-08-23 07:43] LABS: Basophils # (auto) 0 10 ^3/uL (0-0.2); Basophils % (auto) 0.6 % (0.0-2.0); Eosinophils # (auto) 0.2 10 ^3/uL (0-0.8); Eosinophils % (auto) 5.9 % (0.0-7.0); Hematocrit 31.1 % (41.0-53.0); Hemoglobin 10.2 g/dL (13.5-17.5); Lymphocytes # (auto) 0.8 10 ^3/uL (0.4-5.4); Lymphocytes % (auto) 22.8 % (10.0-50.0); Mean Corpuscular Hemoglobin 27.7 pg (28.0-32.0); Mean Corpuscular Hgb Conc. 32.9 g/dL (32.0-36.0); Mean Corpuscular Volume 84.3 fL (80.0-100.0); Monocytes # (auto) 0.5 10 ^3/uL (0-1.3); Monocytes % (auto) 13.6 % (0.0-12.0); Neutrophils % (auto) 57.1 % (37.0-80.0); Nucleated Red Blood Cells % 0.2 %; Platelet Count (auto) 196 10^3/uL (140-450); Red Blood Cells 3.69 10^6/uL (4.5-5.90); White Blood Cell 3.5 10^3/uL (4.4-10.8)
[2024-08-23 08:00] VITALS: PULSE 68; PULSE 69
[2024-08-23 08:35] LABS: Anion Gap 7 (5-15); Carbon Dioxide 26 mmol/L (20-31); Chloride 106 mmol/L (98-107); Potassium 4.4 mmol/L (3.5-5.1); Sodium 139 mmol/L (136-145)
[2024-08-23 08:40] LABS: Glucose 86 mg/dL (74-106)
[2024-08-23 08:41] LABS: BUN/Creatinine Ratio 23.7 (10.0-20.0); Blood Urea Nitrogen 22 mg/dL (9-23)
[2024-08-23 08:49] VITALS: BP 104/60; PULSE 68; RESP 18; TEMP 97.8; O2SAT 98
[2024-08-23 08:56] LABS: Calcium 8.5 mg/dL (8.7-10.4)
[2024-08-23] MEDS: LACTULOSE 20Gm/30ML SOLN PO SCH (09:03)
[2024-08-23] MEDS ORDERED: LACT10SO3 PO (10:16)
[2024-08-23] MEDS ORDERED: CIPR500T4 PO (10:16)
[2024-08-23] MEDS ORDERED: ACET-1882 PO (10:16)
[2024-08-23 10:26] VITALS: BP 84/47; PULSE 68; RESP 18; TEMP 36.6; O2SAT 98
[2024-08-23 12:39] VITALS: BP 90/52; PULSE 73; RESP 16; TEMP 98; O2SAT 98
--- NOTE | 2024-08-23 13:17 | DVHPN2 ---
Progress Note Date Seen: Aug 23, 2024 Medical Necessity Reason Pt with a Central, PICC or Fol: Yes The following are medically ne: De [place] Cruz Catheter Subjective Patient reports: No new complaints Other Systems: Patient seen and examined by myself today in follow-up Objective vital signs Vital Sign Date Time Temp Pulse Resp B/P (MAP) Pulse Ox O2 Delivery O2 Flow Rate FiO2 08/23/24 12:39 98.0 73 16 90/52 (65) 98 98.0 08/23/24 08:00 Room Air* 0 21 Total Intake and Output 08/22/24 08/22/24 08/23/24 15:00 23:00 07:00 Intake Total 600 ml 1850 ml 1250 ml Output Total 2100 ml 1875 ml Balance 600 ml -250 ml -625 ml medications Current Medications Medications Dose Ordered Sig/Melissa Route Start Time Stop Time Status Last Admin Dose Admin Acetaminophen/ Hydrocodone Bitart 1 tab Q4HP PRN PO 08/16/24 14:15 08/22/24 17:11 1 TAB Ondansetron HCl 4 mg Q4HP PRN IV 08/16/24 14:15 08/17/24 12:11 4 MG Acetaminophen 650 mg Q6HP PRN PO 08/16/24 14:15 Tamsulosin HCl 0.4 mg DAILY PO 08/17/24 10:00 Hold 08/22/24 09:23 0.4 MG Ceftriaxone Sodium 50 ml @ 100 mls/hr Q24H IV 08/18/24 23:00 08/22/24 22:20 100 MLS/HR Lactulose 30 ml DAILY PO 08/23/24 10:00 08/23/24 09:03 30 ML Sodium Chloride 1,000 ml @ 100 mls/hr Q10H IV 08/22/24 18:45 08/23/24 04:45 100 MLS/HR Examination: LUNGS:Normal, CVS:Normal, MSK:Normal laboratory and microbiology Laboratory Tests 08/23/24 06:34 Test 08/23/24 06:34 Range/Units Serum Glucose 86 74-106 mg/dL Microbiology Date/Time Source Procedure Growth Status 08/19/24 19:16 Blood Blood Culture - Preliminary NO GROWTH AFTER 72 HOURS OF INCUBATION. Resulted 08/17/24 23:59 Urine - [place] Urine Culture - Final Complete Problem List/Assessment/Plan Problem List/Assessment/Plan Acute kidney injury superimposed Chronic Kidney Disease secondary obstructive uropathy Bilateral hydronephrosis --s/p supra pubic cath Hyperkalemia, improved Metabolic acidosis Prostate cancer metastatic Hyponatremia due to dehydration Anemia of Chronic Kidney Disease Recommendations Kidney function resolved back to normal Increased urine output Strict I&Os DC furosemide Urology consult I will sign off this case, please reconsult as needed Thank you for the consult Plan discussed with: Patient ROBERTO CARLOS RO MD Aug 23, 2024 13:16
--- NOTE | 2024-08-23 17:01 | DVHDSRES ---
Discharge Summary Date of Admission Resident Creating Document: MICHEL CHARLTON RESIDENT Aug 16, 2024 at 14:12 Date of Discharge: Aug 23, 2024 Labs/Diagnostic Data: Laboratory Results Test 08/23/24 06:34 08/19/24 05:40 08/18/24 06:58 08/17/24 21:30 White Blood Count 3.5 10^3/uL (4.4-10.8) Red Blood Count 3.69 10^6/uL (4.5-5.90) Hemoglobin 10.2 g/dL (13.5-17.5) Hematocrit 31.1 % (41.0-53.0) Mean Corpuscular Volume 84.3 fL (80.0-100.0) Mean Corpuscular Hemoglobin 27.7 pg (28.0-32.0) Mean Corpuscular Hemoglobin Concent 32.9 g/dL (32.0-36.0) Red Cell Distribution Width 13.0 % (11.8-14.3) Platelet Count 196 10^3/uL (140-450) Mean Platelet Volume 7.3 fL (6.9-10.8) Neutrophils (%) (Auto) 57.1 % (37.0-80.0) Lymphocytes (%) (Auto) 22.8 % (10.0-50.0) Monocytes (%) (Auto) 13.6 % (0.0-12.0) Eosinophils (%) (Auto) 5.9 % (0.0-7.0) Basophils (%) (Auto) 0.6 % (0.0-2.0) Neutrophils # (Auto) 2.0 10 ^3/uL (1.6-8.6) Lymphocytes # (Auto) 0.8 10 ^3/uL (0.4-5.4) Monocytes # (Auto) 0.5 10 ^3/uL (0-1.3) Eosinophils # (Auto) 0.2 10 ^3/uL (0-0.8) Basophils # (Auto) 0 10 ^3/uL (0-0.2) Nucleated Red Blood Cells 0.2 % Sodium Level 139 mmol/L (136-145) Potassium Level 4.4 mmol/L (3.5-5.1) Chloride Level 106 mmol/L (98-107) Carbon Dioxide Level 26 mmol/L (20-31) Anion Gap 7 (5-15) Blood Urea Nitrogen 22 mg/dL (9-23) Creatinine 0.93 mg/dL (0.700-1.30) Glomerular Filtration Rate Calc 92 mL/min (>90) BUN/Creatinine Ratio 23.7 (10.0-20.0) Serum Glucose 86 mg/dL (74-106) Calcium Level 8.5 mg/dL (8.7-10.4) Prothrombin Time 11.5 sec (9.3-11.8) Prothrombin Time INR 1.09 (0.9-1.15) Activated Partial Thromboplast Time 29.1 SEC (24.5-34.5) Phosphorus Level 3.3 mg/dL (2.4-5.1) Magnesium Level 1.8 mg/dL (1.6-2.6) Vitamin D 25-Hydroxy 33.1 ng/mL (30.0-100) Urine Color Light-brown (Yellow) Urine Clarity Turbid (Clear) Urine pH 7.0 (5.0-9.0) Urine Specific [place] 1.012 (1.001-1.035) Urine Protein 2+ (Negative) Urine Ketones Trace (Negative) Urine Blood 3+ /uL (Negative) Urine Nitrite Negative (Negative) Urine Bilirubin Negative (Negative) Urine Urobilinogen Normal mg/dL (Negative) Urine Leukocyte Esterase 2+ /uL (Negative) Urine RBC 307 /hpf (0 - 3) Urine Microscopic WBC 72 /HPF (0-3) Urine Squamous Epithelial Cells Few /hpf (<5) Urine Bacteria Few /hpf (None Seen) Urine Hyaline Casts Few /lpf (0 - 2) Urine Yeast (Budding) Occasional /hpf (None Urine Glucose Normal mg/dL (Normal) Test 08/17/24 05:51 08/16/24 17:43 Total Bilirubin 0.2 mg/dL (0.2-1.0) Aspartate Amino Transferase (AST) 13 U/L (13-40) Alanine Aminotransferase (ALT) 15 U/L (7-40) Alkaline Phosphatase 76 U/L (46-116) Total Protein 6.9 g/dL (5.7-8.2) Albumin 4.0 g/dL (3.2-4.8) Thyroid Stimulating Hormone (TSH) 1.49 uIU/mL (0.55-4.78) Prostate Specific Antigen > 100.00 ng/mL (0.0-4.0) Other Laboratory Tests 08/23/24 06:34 Brief Hx & Hospital Course: Iraj Vasquez is a 64 year old male patient who presents to the ER following abnormal lab results noted by his PCP (creatinine 12.99 and hyper). Patient reports that he had a christina's catheter for almost a year till he got the TURBT in august 2023. He was able to urinate normally since the procedure until 3 weeks ago when he started to have symptoms of overflow incontinence, weak urinary stream and lower abdominal pain in the the suprapubic. Suprapubic catheter was placed after multiple failed attempts of Christina catheter placement, obtaining a 1100 ml of urine. Past medical history: Bladder CA s/p TURBT, prostate CA with no follow up (patient was supposed to receive BCG lavage), prostatomegaly, noncompliant Past surgical history: TURBT 2023, cholecystectomy Family history: Noncontributory Social history: patient denies smoking, alcohol, drug use Allergies: Penicillin (has tolerated ceftriaxone and cefepime) Home medications: tamsulosin 0.4mg, amlodipine 5mg Brief hospital course: RANDALL secondary to urinary obstruction likely due to prostatomegaly secondary to prostate cancer associated with hyperkalemia, requiring emergent suprapubic catheter placement by Urology specialist. Evaluated by Urology and Nephrology specialist, optimizing medical therapy (no hemodialysis needed at the time evaluation), and completing TURP, with [facility] for 24 hours. Patient was discharged with permanent Christina catheter placed. Patient was also treated for UTI with ceftriaxone, discharged with ciprofloxacin to complete five days (urine culture was negative). Completed bone scan which showed metastatic lesions (multifocal osteoblastic metastasis and left sacral ala, left superior corner of L4 and manubrium) deciding to order hormonal/chemotherapy for prostate cancer, and patient has to follow up with urology specialist. Patient postpone one day of discharge due to asymptomatic hypotension, responding to IV fluids. Patient hemodynamically stable, asymptomatic, with clear urine from permanent Christina catheter, in condition to be discharged home. Was granted under optimal medical therapy (hormonal therapy we will be received as outpatient), gave advice on healthy lifestyle habits and follow-up with PCP, urologist, oncologist and central sterile tech. DIAGNOSIS # Acute urinary obstruction likely due to enlarged prostate - status post suprapubic catheter, currently status post TURP # Prostate cancer likely metastatic - status postop # Bladder cancer s/p TURBT # Acute renal injury likely due to obstructive uropathy with bilateral hydronephrosis # Hyperkalemia # Asymptomatic hypotension Goals of care discussed with the patient for over 19 minutes: Full code Plan discussed with Dr. Sams, patient and nurses. Examination Patient lying in bed, in no acute distress General: Lucid, afebrile, mucosae are moist Cardiovascular: Normal S1 and S2. No murmurs, gallops or rubs Respiratory: Normal ventilation mechanics. Clear lung sounds on auscultation Abdomen: Soft, nontender, no organomegaly, normal bowel sounds MSK/skin: Mobilizes 4 limbs. Skin is dry and warm : Three way Christina catheter with no bleeding, suprapubic surgical site with no pus or no collections. Neurological: Oriented in 3 spheres. No motor no sensitive deficits. Pupils are isocoric and reactive Operations or Procedures RENAL ULTRASOUND CLINICAL HISTORY: RANDALL TECHNIQUE: Multiple ultrasound images of the kidneys and bladder were obtained. COMPARISON: None FINDINGS: The right kidney measures 11.9 cm in length. The left kidney measures 11.7 cm. There is mild bilateral hydronephrosis. There is no sonographic evidence of nephrolithiasis. There is no discrete lesion identified by ultrasound. The bladder appears within normal limits with prevoid volume measuring 396 cc. Calculated prostate volume is 30 cc. IMPRESSION: 1. Mild bilateral hydronephrosis. There is no sonographic evidence of nephrolithiasis. HS:Y ATED BY: DEXTER CASIANO MD DICTATED DATE/TIME: 08/16/24 7725 Exam: CT CT AB PEL WO CON-NO ORAL OR IV History: BLADDER CANCER Comparison Study: None available at time of dictation. TECHNIQUE: Multidetector CT of the abdomen was performed from lung bases to pubic symphysis. Imaging was performed without IV contrast. Axial, coronal and sagittal multiplanar reformats were obtained from the axial data set by the technologist. Radiation Dose Information: CT Dose: CTDI volume is 10.84 mGy. Dose-length product is 600.82 mGy*cm FINDINGS: Evaluation of solid organs is limited due to lack of intravenous contrast use. Findings: Lung Bases: No acute or significant lung base finding. Coronary artery calcifications. When compared to Liver: The liver is normal in size. No focal lesions. Gallbladder and Biliary Tree: Gallbladder has been surgically removed. Spleen: Unremarkable Pancreas: The pancreas is grossly normal in appearance. Adrenal Glands: Unremarkable Kidneys: Kidneys are grossly normal without calculi or hydronephrosis. Bladder: Suprapubic catheter in place. Bowel: The stomach is grossly normal in appearance. Stable hiatal hernia Small bowel and colon are normal in caliber and distribution. The appendix is not visualized; however, no secondary findings of acute appendicitis identified. Ascites: Absent Lymphadenopathy: No mesenteric, retroperitoneal or periportal lymphadenopathy. Abdominal Wall and Mesentery: Unremarkable. Vasculature: The visualized abdominal aorta is normal in size and caliber. Evaluation of abdominal and pelvic vessels is limited due to lack of intravenous contrast. Pelvic Organs: Unremarkable Musculoskeletal: No aggressive focal bony lesions, acute fractures or dislocation. Soft tissues: Unremarkable IMPRESSION: 1. Trace right pleural effusion. 2. Trace pericardial effusion. 3. Stable hiatal hernia. 4. Suprapubic catheter in place. Radiation optimization: All CT scans at this facility use at least one of these dose optimization techniques: automated exposure control mA and/or kV adjustment per patient size (includes targeted exams where dose is matched to clinical indication) or iterative reconstruction. ATED BY: CRISTAL LYONS Jr., DO DICTATED DATE/TIME: 08/16/241946 Procedure: NM BONE WHOLE BODY Exam Date: 08/17/2024 03:00 PM Reason for study/Clinical History: prostate cancer Comparison Study: None available at time of dictation. Prior correlative imaging: CT scan dated 08/16/2024 Nuclear Medicine Whole Body Bone Scan Technique: Following the intravenous administration of 25 millicuries of technetium 99m labeled MDP, whole body images in the anterior and posterior projections were obtained 3 hours following the administration of radiopharmaceutical. Findings: Large, intense radiotracer activity noted in the left sacral ala. Moderate- sized, intense radiotracer activity noted in the region of manubrium and upper thoracic spine superimposed on each other and difficult to differentiate in the anterior and posterior views without oblique views if manubrial or thoracic in location. Subcentimeter focus of radiotracer activity in left side of the L4. The expected mild activity is noted overlying both kidneys and the bladder without evidence of obstruction. 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 To better locate pathology in the chest, recommend further evaluation with chest CT scan. ATED BY: ALMA MORA MD DICTATED DATE/TIME: 08/17/24 1709 CHEST RADIOGRAPH Indication: randall Technique: Single frontal view of the chest was obtained Comparison: XY CHEST XRAY 1 VIEW on DOS: 09/16/23 IMPRESSION: The heart appears normal in size. There are subsegmental atelectasis in the left lung base. The lungs appear clear without focal airspace opacity, effusion, or pneumothorax. ATED BY: ITALIA THURSTON MD DICTATED DATE/TIME: 08/20/24 0523 ORDERING PHYSICIAN: STARLA ANAND RESIDENT PROCEDURE(s): ECIDC - ECHO 2D MODE CARDIAC DOP REASON: ?pericardial eff on ct ORDER NUMBER(s): [id number], ACCESSION NUMBER(s): [id number] APPROVED REPORT EXAM: Two-dimensional and M-mode echocardiogram with Doppler and color Doppler. Blood Pressure: 93/61 mmHg INDICATION Pericardial Effusion on CT RISK FACTORS Height: 5' 8", Weight: 161 DIMENSIONS LVDd 4.6 (3.8-5.7cm) LA (2D) 4.2 (1.9-4.0cm) Aortic Root 3.5 (2.0- 3.7cm) LVDs 3.2 (2.5-4.0cm) LA (MM) (1.9-4.0cm) Aortic Cusp Exc 1.4 (1.5- 2.0cm) EF (%) 60.0 (55-70%) Rt. Atrium 4.1 (1.9-4.0cm) Asc. Aorta cm IVSd 1.2 (0.7-1.1cm) RV (D) (1.8-2.4cm) PWd 1.2 (0.7-1.1cm) Mitral Valve Mitral Mitral Stenosis E wave 0.60m/s MV Mean GR. mmHg A wave 0.80m/s MV Peak GR. mmHg E/A ratio 0.8 2D MVA cm2 Aortic Valve Aortic Valve Aortic Stenosis V1 1.00m/s AO Mean GR. 9mmHg V2 2.00m/s AO Peak GR. 17mmHg LVOT Diameter 2.1 (1.8-2.4cm) Doppler GAEL 1.73cm2 AI P 1/2 Time 1234.64ms Pulmonic Valve V2 1.00m/s Tricuspid Valve TR Velocity 2.10m/s RVSP 25mmHg Conclusion Sinus rhythm. Concentric LVH with biatrial enlargement and mild aortic root enlargement. Mild aortic sclerosis. The mitral tricuspid and pulmonic or structurally normal. EF of 65-70% with normal RV function. Mild TR. No pericardial effusion masses or vegetations. SIGNED BY: WALDEMAR MESSINA Sr., MD SIGNED DATE/TIME: 08/18/24 3340 Condition at Discharge: Good Final Diagnosis/Problems List # Acute urinary obstruction likely due to enlarged prostate - status post suprapubic catheter, currently status post TURP # Prostate cancer likely metastatic - status postop # Bladder cancer s/p TURBT # Acute renal injury likely due to obstructive uropathy with bilateral hydronephrosis # Hyperkalemia # Asymptomatic hypotension Discharge Disposition: Home Discharge Instruct/Medications Diet: Renal Activity: No Restrictions, As Tolerated Follow Up/Referral: PCP Urology Oncology Medications: Per EMR Discharge Statement: "Patient was advised to return to the ER or call 911 if any headaches, dizziness, shortness of breath, chest pain, abdominal pain, bleeding, fevers, or worsening of medical condition. Patient was counseled about treatment plan, medications, possible side effects, patientverbalized understanding. All questions were answered to the best of my ability. This discharge took greater then 30 minutes in planning, reviewing documentation, counseling the patient, and discussing with other team members." ASSESSMENT ASSESSMENT Assessment RANDALL secondary to obstructive uropathy Date of Service: Aug 23, 2024 Billing Provider: KORI SAMS MD Common Visit Codes: 69109-SGQ/OBS DISCH DAY >30min ETCHEGOYEN,MICHEL RESIDENT Aug 23, 2024 17:01 KORI SAMS MD Aug 24, 2024 15:45
== END 2024-08-23 14:28 | disposition home or self-care (01) | DRG 681 ==
LOC: EDBD 10:43 → ER 10:43 → TELE 14:12 → TELE-CENTR 14:14
PROVIDERS: ADMIT Student in an Organized Health Care Education/Training Program; ATTEND Student in an Organized Health Care Education/Training Program
PROC: 0VT08ZZ Resection of Prostate, Via Natural or Artificial Opening Endoscopic (ICD-10-PCS; principal; 2024-08-20 07:44)
DX: C79.82 Secondary malignant neoplasm of genital organs (principal); E87.20 Acidosis, unspecified; N17.9 Acute kidney failure, unspecified; D63.1 Anemia in chronic kidney disease; E87.1 Hypo-osmolality and hyponatremia; D63.8 Anemia in other chronic diseases classified elsewhere; C67.9 Malignant neoplasm of bladder, unspecified; N13.8 Other obstructive and reflux uropathy; N13.30 Unspecified hydronephrosis; N36.5 Urethral false passage; N39.0 Urinary tract infection, site not specified; E86.0 Dehydration; E87.5 Hyperkalemia; N18.9 Chronic kidney disease, unspecified; I12.9 Hypertensive chronic kidney disease with stage 1 through stage 4 chronic kidney disease, or unspecified chronic kidney disease; N40.1 Benign prostatic hyperplasia with lower urinary tract symptoms; Z88.0 Allergy status to penicillin; Z90.49 Acquired absence of other specified parts of digestive tract; Z85.51 Personal history of malignant neoplasm of bladder; Z85.118 Personal history of other malignant neoplasm of bronchus and lung; Z80.1 Family history of malignant neoplasm of trachea, bronchus and lung; Z80.52 Family history of malignant neoplasm of bladder; Z79.899 Other long term (current) drug therapy; Z91.199 Patient's noncompliance with other medical treatment and regimen due to unspecified reason
CPT/HCPCS: 36415; 71045; 74176; 76775; 78306; 80048; 80053; 81001; 82306; 83735; 84100; 84153; 84443; 85025; 85610; 85730; 87040; 87086; 93005; 93306; 96365; 96366; 96367; 96375; 96376; G0378; J1815; J2003; J2250; J2405; J2704

== ENCOUNTER 2024-10-23 18:52 | Emergency (ER) | payer MEDICAID ==
[~2024-10-23] VITALS: Ht 172.7 cm; Wt 79.3 kg
[~2024-10-23 18:52] MED LIST changes: +ACET-1882 PO; -CIPR-173 PO; +CIPR500T4 PO; -HYDR-4902 PO; +LACT10SO3 PO; -METR-344 PO; +RELU120T PO
--- NOTE | 2024-10-23 19:30 | ED.PDOC ---
General HPI Comments 64-year-old male presents with a chief complaint of bilateral flank pain, lower abdominal pain, difficulty with urination, hematuria, and fever. Patient states that his pain is localized to his bilateral flanks and suprapubic abdomen, nonradiating, describes as sharp, and rates his pain a 9/10. Patient reports that he was able to urinate after triage assessment, but the urine was yellow in color and no longer bloody. Patient denies any nausea, vomiting, or diarrhea. No other symptoms or modifying factors present at this time. Patient reports he has been on Macrobid since Thursday for urinary tract infection. Patient had TURP in August of this year with Dr. Alvarez He reports urinary incontinence since the procedure. Chief Complaint: Flank Pain Time Seen by MD: 19:10 Primary Care Provider: ADWOA Reviewed notes: Medications, Allergies Allergies: Coded Allergies: Bacitracin (Verified Allergy, Severe, 10/23/24) Neomycin (Verified Allergy, Severe, 10/23/24) Polymyxin B (Verified Allergy, Severe, 10/23/24) Penicillins (Verified Allergy, Unknown, 03/06/23) Home Meds Active Scripts Ciprofloxacin Hcl (Ciprofloxacin Hcl) 500 Mg Tab, 1 TAB PO BID for 5 Days, #10 TAB Prov:MICHEL CHARLTON 08/23/24 Lactulose (Lactulose) 10 Gm/15 Ml Disha, 30 ML PO DAILY for 30 Days, #30 ML Prov:MICHEL CHARLTON 08/23/24 Acetaminophen (Acetaminophen) 325 Mg Tab, 650 MG PO Q6HP PRN for 10 Days, #80 TAB Prov:MICHEL CHARLTON 08/23/24 Relugolix (Orgovyx) 120 Mg Tab, 120 MG PO DAILY for 90 Days, #90 TAB Prov:KORI BAUMAN MD 08/22/24 Hydrocortisone Acetate (Anusol-Hc) 25 Mg Sup, 1 SUPP WI BID, #14 SUPP Prov:PARVEEN GOLDMAN MD 08/05/24 Tamsulosin Hcl (Flomax) 0.4 Mg Cap, 1 CAP PO DAILY, #30 CAP Prov:KJ HODGES 06/19/23 Information Source: Patient Mode of Arrival: Ambulatory Severity: Moderate Inability to void: None Timing: Weeks Duration: Since onset Has not urinated for: Minutes Prehospital treatment: None Onset: Spontaneous Symptoms: Hematuria History of: BPH Location: Suprapubic, (R) Flank, (L)Flank Penile discharge: None Modifying factors: None associated signs and symptoms: Fever, Abdominal Pain, Flank Pain, Hematuria Vital Signs Vital Signs Date Time Temp Pulse Resp B/P (MAP) Pulse Ox O2 Delivery O2 Flow Rate FiO2 10/23/24 20:47 67 10/23/24 19:05 99.6 15 146/61 (89) 98 99.6 Physical Exam General: Awake, alert and oriented. No acute distress. Skin: Skin in warm, dry and intact. Appropriate color for ethnicity. HEENT: The head is normocephalic and atraumatic. Conjunctivae are clear without exudates or hemorrhage. Sclera is non-icteric. EOM are intact. No signs of nystagmus. Eyelids are normal in appearance without swelling or lesions. Oral mucosa is pink and moist Neck: The neck is supple with normal range of motion. No JVD. Cardiac: Heart rate and rhythm are normal. No murmurs, gallops, or rubs are auscultated. Respiratory: No signs of respiratory distress. Lung sounds are clear in all lobes bilaterally without rales, rhonchi, or wheezes. Abdominal: Positive bilateral CVA tenderness. Positive bilateral flank tenderness. Positive suprapubic tenderness. No guarding, distention or rigidity. Extremities: Upper and lower extremities are atraumatic in appearance without deformity or edema. Neurological: The patient is awake, alert and oriented to person, place, and time with normal speech. Speech is clear. There is no facial asymmetry. Normal gait Psychiatric: Appropriate mood and affect. Good judgement and insight. Review of Systems: REVIEW OF SYSTEMS: Positive fever, no chills, or fatigue HEENT: No sore throat, no earache, no congestion, no neck pain. Cardiac: No chest pain. No palpitations. Lungs: No shortness of breath, no cough. GI: No nausea, no vomiting, no diarrhea, no constipation, positive abdominal pain, positive bilateral flank pain : Positive dysuria, frequency, or urgency. Positive hematuria. Musculoskeletal: No joint pain , no joint swelling, no extremity edema. Skin: No rash, no itching. Neuro: No headache, positive dizziness, no weakness Past Medical History PAST MEDICAL HISTORY: Cancer, HTN Surgical History: Cholecystectomy Family History Family History: Family hx of Cancer Social History Smoker: Non-Smoker Alcohol: Occasionally Drugs: Denies Drug Use Lives In: Home Was a procedure done? Was a procedure done?: No Differential Diagnosis Kidney stone (Female): AAA, Pyelonephritis, Renal failure, Urinary obstruction, Urolithiasis Kidney stone (Male): Urinary tract infection Urinary Problem (Male): Bladder Obstruction, Post op Complications, Urolithiasis, Other (Hydronephrosis) X-Ray, Labs, Meds, VS Vital Signs Date Time Temp Pulse Resp B/P (MAP) Pulse Ox O2 Delivery O2 Flow Rate FiO2 10/23/24 20:47 67 10/23/24 19:05 99.6 86 15 146/61 (89) 98 99.6 10/23/24 19:03 99.6 86 15 146/61 (89) 98 99.6 Lab Test 10/23/24 19:31 10/23/24 19:27 Range/Units Urine Color Light-yellow Yellow Urine Clarity Clear Clear Urine pH 5.5 5.0-9.0 Urine Specific [place] 1.006 1.001-1.035 Urine Protein Negative Negative Urine Ketones Negative Negative Urine Blood 2+ H Negative /uL Urine Nitrite Negative Negative Urine Bilirubin Negative Negative Urine Urobilinogen Normal Negative mg/dL Urine Leukocyte Esterase 2+ Negative /uL Urine RBC 602 0 - 3 /hpf Urine Microscopic WBC 6 H 0-3 /HPF Urine Squamous Epithelial Cells None seen <5 /hpf Urine Bacteria None seen None Seen /hpf Urine Glucose Normal Normal mg/dL White Blood Count 9.2 4.4-10.8 10^3/uL Red Blood Count 4.32 L 4.5-5.90 10^6/uL Hemoglobin 12.3 L 13.5-17.5 g/dL Hematocrit 37.4 L 41.0-53.0 % Mean Corpuscular Volume 86.8 80.0-100.0 fL Mean Corpuscular Hemoglobin 28.6 28.0-32.0 pg Mean Corpuscular Hemoglobin Concent 32.9 32.0-36.0 g/dL Red Cell Distribution Width 15.7 H 11.8-14.3 % Platelet Count 338 140-450 10^3/uL Mean Platelet Volume 7.9 6.9-10.8 fL Neutrophils (%) (Auto) 65.6 37.0-80.0 % Lymphocytes (%) (Auto) 23.6 10.0-50.0 % Monocytes (%) (Auto) 6.4 0.0-12.0 % Eosinophils (%) (Auto) 3.9 0.0-7.0 % Basophils (%) (Auto) 0.5 0.0-2.0 % Neutrophils # (Auto) 6.0 1.6-8.6 10 ^3/uL Lymphocytes # (Auto) 2.2 0.4-5.4 10 ^3/uL Monocytes # (Auto) 0.6 0-1.3 10 ^3/uL Eosinophils # (Auto) 0.4 0-0.8 10 ^3/uL Basophils # (Auto) 0.1 0-0.2 10 ^3/uL Nucleated Red Blood Cells 0.1 % Sodium Level 138 136-145 mmol/L Potassium Level 4.5 3.5-5.1 mmol/L Chloride Level 101 98-107 mmol/L Carbon Dioxide Level 30 20-31 mmol/L Anion Gap 7 5-15 Blood Urea Nitrogen 28 H 9-23 mg/dL Creatinine 1.36 H 0.700-1.30 mg/dL Glomerular Filtration Rate Calc 58 >90 mL/min BUN/Creatinine Ratio 20.6 H 10.0-20.0 Serum Glucose 92 74-106 mg/dL Calcium Level 10.2 8.7-10.4 mg/dL Total Bilirubin 0.2 0.2-1.0 mg/dL Aspartate Amino Transferase (AST) 19 13-40 U/L Alanine Aminotransferase (ALT) 19 7-40 U/L Alkaline Phosphatase 214 H 46-116 U/L Total Protein 7.7 5.7-8.2 g/dL Albumin 4.7 3.2-4.8 g/dL Current Medications Medications (Trade) Dose Ordered Sig/Melissa Route Start Time Stop Time Status Last Admin Acetaminophen (Tylenol Tablet Or Capsule) 1,000 mg ONCE ONCE PO 10/23/24 19:30 10/23/24 19:31 DC 10/23/24 20:36 Time of 1ST Reevaluation: 19:40 Reevaluation 1ST: Unchanged Patient Education/Counseling: Need For Follow Up Family Education/Counseling: No Family Present Departure 1 Departure Time of Disposition: 21:34 Impression: Primary Impression: Prostate cancer Additional Impressions: Urinary tract infection CKD (chronic kidney disease) Disposition: HOME / SELF CARE / HOMELESS Condition: Stable Additional Instructions: ED DISCHARGE INSTRUCTIONS Instructions: Please read all instructions provided in this packet carefully. Although you have been discharged from the Emergency Department, this does not mean that you have a "clean bill of health". It is possible that you are in the process of developing a serious illness. This is why you must return to the ED without fail if any new or worsening symptoms (especially if your symptoms include chest pain, trouble breathing, abdominal pain, fever, headache, confusion, trouble seeing, or trouble walking) Continue antibiotics as previously prescribed by your provider. It is also very important that you see a primary care doctor within the next 2-3 days to follow up. Your alkaline phosphatase liver enzyme was elevated today. You will need to follow up with the primary care provider for re-evaluation. If you are unable to get an appointment, return to the ED for re-evaluation. Comments CT scan showing sclerotic lesions in pelvic bone concerning for metastasis which were previously seen on PET scan in August of 2024. Patient well-appearing, nontoxic. Advised prompt follow-up with PCP, return to the ED with any new, worsening or concerning symptoms. Critical Care Note Critical Care Time?: No Stability Stability form required: No Heart Score Heart Score: Heart Score Response (Comments) Value History N/A 0 EKG N/A 0 Age N/A 0 Risk Factors N/A 0 Troponin N/A 0 Total 0 I personally scribed for KARINE BHARDWAJ MD ([email or web address]) on 10/23/24 at 19:30. Electronically submitted by Alexys Smith ([email or web address]). KARINE BHARDWAJ MD Oct 23, 2024 19:30
[2024-10-23 19:34] LABS: Urine Bacteria None Seen /hpf (None Seen)
[2024-10-23 19:37] LABS: Basophils # (auto) 0.1 10 ^3/uL (0-0.2); Basophils % (auto) 0.5 % (0.0-2.0); Eosinophils # (auto) 0.4 10 ^3/uL (0-0.8); Eosinophils % (auto) 3.9 % (0.0-7.0); Hematocrit 37.4 % (41.0-53.0); Hemoglobin 12.3 g/dL (13.5-17.5); Lymphocytes # (auto) 2.2 10 ^3/uL (0.4-5.4); Lymphocytes % (auto) 23.6 % (10.0-50.0); Mean Corpuscular Hemoglobin 28.6 pg (28.0-32.0); Mean Corpuscular Hgb Conc. 32.9 g/dL (32.0-36.0); Mean Corpuscular Volume 86.8 fL (80.0-100.0); Monocytes # (auto) 0.6 10 ^3/uL (0-1.3); Monocytes % (auto) 6.4 % (0.0-12.0); Neutrophils % (auto) 65.6 % (37.0-80.0); Nucleated Red Blood Cells % 0.1 %; Platelet Count (auto) 338 10^3/uL (140-450); Red Blood Cells 4.32 10^6/uL (4.5-5.90); Red Cell Distribution Width 15.7 % (11.8-14.3); White Blood Cell 9.2 10^3/uL (4.4-10.8)
[2024-10-23 19:43] LABS: Urine Blood 2+ /uL (Negative); Urine Clarity Clear (Clear); Urine Color Light-Yellow (Yellow); Urine Protein, UAD Negative (Negative); Urine Specific Gravity 1.006 (1.001-1.035); Urine Squamous Epithelial Cell None Seen /hpf (<5); Urine Urobilinogen Normal (Negative); Urine WBC 6 /HPF (0-3); Urine pH 5.5 (5.0-9.0)
[2024-10-23 20:02] LABS: Alanine Aminotransferase 19 U/L (7-40); Albumin 4.7 g/dL (3.2-4.8); Anion Gap 7 (5-15); Aspartate Aminotransferase 19 U/L (13-40); BUN/Creatinine Ratio 20.6 (10.0-20.0); Calcium 10.2 mg/dL (8.7-10.4); Carbon Dioxide 30 mmol/L (20-31); Chloride 101 mmol/L (98-107); Glucose 92 mg/dL (74-106); Potassium 4.5 mmol/L (3.5-5.1); Sodium 138 mmol/L (136-145); Total Protein 7.7 g/dL (5.7-8.2)
[2024-10-23 20:08] LABS: Alkaline Phosphatase 214 U/L (46-116); Bilirubin, Total 0.2 mg/dL (0.2-1.0); Blood Urea Nitrogen 28 mg/dL (9-23)
[2024-10-23] MEDS: ACETAMINOPHEN 500 MG TAB or CAP PO ONE (20:36)
--- NOTE | 2024-10-23 21:10 | DVH ---
CLINICAL HISTORY: Bilateral flank pain TECHNIQUE: CT of the abdomen and pelvis was performed without intravenous contrast. This exam was per formed according to our departmental dose optimization program. Up-to-date CT equipment and radiation dose reduction techniques are utilized as appropriate. CTDI: 9.22 DLP: 452.42 WID: COMPARISON: CT CT AB PEL WO CON-NO ORAL OR IV on DOS: 08/16/24 FINDINGS: Lower Thorax: Moderate hiatal hernia. Lung bases are clear. Normal-sized heart. Partially imaged at least mild calcified coronary artery disease. Liver and Biliary system: Prior cholecystectomy, otherwise unremarkable. Spleen: Unremarkable. Adrenal Glands and Kidneys: Normal adrenal glands. No hydronephrosis or nephrolithiasis. Pancreas and Retroperitoneum: Unremarkable. Aorta and Major Vessels: Aortoiliac vessels are normal in caliber containing mild calcified atheroscl erotic plaque. Bowel, Mesentery and Peritoneal space: Normal appendix. Normal caliber small and large bowel. Mild di stal colonic diverticulosis. No free air or fluid collection. Pelvis: Tiny sclerotic foci in the prostate gland. Urinary bladder is mildly distended with wall thic [place]. 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 No pelvic lymphadenopathy. Abdominal wall and Osseous Structures: Fat containing inguinal hernias. Mixed sclerotic and lucent le anant in the posterior left sacral ala (series 2, image 57). Prominent subchondral cystic change in th e acetabulum. Asymmetric sclerosis of the left inferior pubic ramus. Multilevel lower thoracic and salazar mbar spondylosis. No destructive osseous lesion. IMPRESSION: 1. Circumferential bladder wall thickening. Correlate with urinalysis if there is clinical concern f or cystitis. 2. 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 3. Sclerotic lesions in the left sacral ala and in the left inferior pubic ramus which are likely met astases. 4. Moderate hiatal hernia. 5. Mild distal colonic diverticulosis.
--- NOTE | 2024-10-23 21:51 | ECG ---
[facility] Test Date: 2024-10-23 Test Time: 20:47:15 Pat Name: MOUNIKA PETIT Department: ER Room: Gender: Sticker On: : 1960 Requested By: KARINE BHARDWAJ Order Number: [id number] Reading MD: Gume Plascencia Measurements Intervals [place] Rate: 67 P: 72 NV: 154 QRS: 53 QRSD: 148 T: 36 QT: 440 QTc: 465 Interpretive Statements Sinus rhythm Right bundle branch block Electronically Signed On 10-26-2024 20:57:04 PDT by Gume Plascencia Please click the below link to view image of tracing.
[2024-10-23 22:23] VITALS: BP 137/67; PULSE 97; RESP 19; TEMP 98.2; O2SAT 98
== END 2024-10-23 22:25 | disposition home or self-care (01) ==
LOC: ER 18:52
DX: C61 Malignant neoplasm of prostate (principal); I12.9 Hypertensive chronic kidney disease with stage 1 through stage 4 chronic kidney disease, or unspecified chronic kidney disease; N18.9 Chronic kidney disease, unspecified; N39.0 Urinary tract infection, site not specified; Z90.49 Acquired absence of other specified parts of digestive tract; Z88.0 Allergy status to penicillin
CPT/HCPCS: 36415; 74176; 80053; 81001; 85025; 93005